=== PATIENT | male | born 1955 | race Caucasian/White ===

== ENCOUNTER 2019-11-13 13:20 | Inpatient (IN) | payer OTHER ==
[~2019-11-13] VITALS: Ht 177.8 cm; Wt 77.1 kg
--- NOTE | ~2019-11-13 | HC ---
[facility] [place] [address] CONSULTATION Name: KALEB REDDY Room #: 448-P [facility] IN .R.#: [id number] Admission: 11/13/19 Attend Phys: Bharat Maier MD Discharge: Date of : 59 Report #: [id number] THIS REPORT FOR: cc: [facility] - No family physician/PCP [facility] - No family physician/PCP Thiago Snyder MD ~ CC: [facility] physician/PCP Bharat Maier DATE OF SERVICE: 11/17/2019 HISTORY OF PRESENT ILLNESS: The patient is a 64-year-old white male with history of diabetes mellitus, ongoing problems with right foot, does not have a regular physician or insurance and has not been seen for approximately 3 years. He was diagnosed with osteomyelitis of that right foot and underwent a below-knee amputation on 11/14/2019. We are seeing him in rehabilitation medicine consultation. PAST MEDICAL HISTORY: Includes the diabetes mellitus. ALLERGIES: No known drug allergies. MEDICATIONS: Please see the full medication listing. HABITS: No history of tobacco or alcohol abuse. SOCIAL HISTORY: Lives in a house alone without adaptive device. There are 20 steps in and that are outside steps, have an ascending hand roll on the left. He notes this is a rental home and he has a landlord. He does not have any family in the area. REVIEW OF SYSTEMS: Denies any current complaints of chest pain, shortness of breath or abdominal discomfort. PHYSICAL EXAMINATION: GENERAL: The patient is a 64-year-old white male in no obvious distress. VITAL SIGNS: Last recorded temperature 98.7, pulse 95, respirations 18, blood pressure 121/83. The patient is alert, pleasant. HEENT: Appeared to be benign. NEUROLOGIC: Cranial nerves grossly intact. Facies are symmetric. EXTREMITIES: Functional range of motion of both upper extremities without focal weakness. He notes he has had some prior trauma to the left shoulder and complains of some premorbid mild weakness. He does have some mild weakness with external rotation with the arm adducted. Lower extremities, no focal calf swelling of the left lower extremity, functional range of motion with good strength. Right lower extremity reveals the right below knee amputation. [address] [address] CONSULTATION Name: KALEB REDDY Room #: 448-P [facility] IN .R.#: [id number] Admission: 11/13/19 Attend Phys: Bharat Maier MD Discharge: Date of : 59 Report #: [id number] He can fully extend. Functionally, he has been min assist sit to stand. ASSESSMENT: A 64-year-old white male with the following problems: 1. Osteomyelitis, right foot, status post right below-knee amputation, 11/14/2019. 2. Diabetes mellitus, was utilizing oral treatment. Hemoglobin A1c was 9.9 on admission noted to be uncontrolled. 3. Vitamin D deficiency. PLAN: Therapies are working with him. We will need to see how he does. We will be glad to follow along with you regarding rehab therapy issues. By: 1207 [facility] Thiago Snyder MD /WALI
--- NOTE | ~2019-11-13 | HC ---
[facility] [place] [address] CONSULTATION Name: KALEB REDDY Room #: 448-P [facility] IN M.R.#: [id number] Admission: 11/13/19 Attend Phys: Bharat Maier MD Discharge: Date of : 59 Report #: [id number] THIS REPORT FOR: cc: [facility] - No family physician/PCP [facility] - No family physician/PCP Frances Hawkins MD ~ CC: [facility] physician/PCP Bharat Maier DATE OF SERVICE: 11/14/2019 ORTHOPEDIC CONSULTATION NOTE REASON FOR CONSULTATION AND CHIEF COMPLAINT: Right necrotic foot. HISTORY OF PRESENT ILLNESS: The patient reports in August noting that his right foot turned black. He washed it off, got all the black stuff off per him, but it did not heal. He thinks he may have had a blood clot at some point. He reports it is painful and he notes a foul smell and drainage. He has been wrapping his foot. The patient has not seen a physician in 3 years. REVIEW OF SYSTEMS: NEUROLOGIC: Reports numbness and tingling to all of his extremities. MUSCULOSKELETAL: Denies any other wounds to his extremities. PAST MEDICAL HISTORY: Significant for coronary artery disease and diabetes. PAST SURGICAL HISTORY: CABG x 6 and cataract surgery. MEDICATIONS: No home medications. SOCIAL HISTORY: He does not work, has difficulty ambulating secondary to his foot. Drinks alcohol occasionally. FAMILY HISTORY: Noncontributory. LABORATORY STUDIES: Done on 11/13/2019 show white blood cell count 7.1, hemoglobin 9.4, hematocrit 28.4, platelet count 557. ESR is 123. Chemistry on 11/12 showed a blood glucose of 284. PHYSICAL EXAMINATION: GENERAL: The patient is alert and oriented. He interacts appropriately. He is well-developed, well-nourished male in no acute distress. He has normal mood and affect. He is in his hospital bed. VITAL SIGNS: Most recent vital signs show a temperature of 36.6, heart rate 79, respiratory rate 18, blood pressure 92/57, pulse oximetry is 97% on room air. [address] [address] CONSULTATION Name: KALEB REDDY Room #: 448-P [facility] IN M.R.#: [id number] Admission: 11/13/19 Attend Phys: Bharat Maier MD Discharge: Date of : 59 Report #: [id number] EXTREMITIES: Examination of his right lower extremity, there is a foul odor from the foot. It was unwrapped nearly completely. There was absence of the toes. The patient reports these "dissolved." There was significant edema to the entire foot including the heel. I was unable to palpate a posterior tibial or a dorsalis pedis pulse. Gross motion was intact at the ankle. Gross stability of the ankle was intact. There was diffuse erythema at the entire foot. Sensation was decreased. He had a 2+ popliteal pulse. His left foot was intact. The skin was intact. IMAGING STUDIES: Three views of the right foot including an AP, lateral and oblique were reviewed and interpreted by myself. The report was reviewed as well, which shows absence of the distal phalanges of the foot, soft tissue air. IMPRESSION AND PLAN: Right foot necrosis with autoamputation, wet gangrene. I will order a Doppler evaluation of the arteries and discuss with one of my [facility] partners. We will keep him n.p.o. at this point. We discussed most likely below-knee amputation would be required. Questions were encouraged and answered to the best of my ability. By: [id number] Frances Hawkins MD /nt
--- NOTE | ~2019-11-13 | HC ---
[facility] [place] [address] CONSULTATION Name: KALEB REDDY Room #: 448-P [facility] IN M.R.#: [id number] Admission: 11/13/19 Attend Phys: Bharat Maier MD Discharge: Date of : 59 Report #: [id number] THIS REPORT FOR: cc: [facility] - Suzette family physician/PCP [facility] - Suzette family physician/PCP Wilfrid Celaya MD ~ CC: [facility] physician/PCP Bharat Maier DATE OF SERVICE: 11/14/2019 WOUND CARE CONSULTATION PERSONAL PHYSICIAN: Bharat Maier MD CHIEF COMPLAINT: Right foot wound. HISTORY OF PRESENT ILLNESS: This is a 64-year-old white male with a history of poorly controlled diabetes, who states approximately 3-4 months ago, he developed swelling of his right foot, which he states he thought was secondary to blood flow. The patient at that time states he a heating pad on the foot and then several hours later noticed that his foot was somewhat black. The patient states that he started having increased drainage and has been using paper towels and a plastic bag for this. The patient has not sought medical care. The patient states, however, in the past couple of days the patient started having slight amount of pain in the foot as well as a significant odor. It was the odor that brought him to the Emergency Department to be evaluated. In the Emergency Department, it was felt the patient had obvious open infected wound with exposed bones. The patient was admitted for IV antibiotics, surgical evaluation and most likely a ytzbz-ttx-bdds amputation. PAST MEDICAL HISTORY: Significant only for diabetes. CURRENT MEDICINES: None. Despite the patient is diabetic he is not taking any medicines for it. DRUG ALLERGIES: None. SOCIAL HISTORY: The patient does not smoke. The patient drinks alcohol socially. Lives independently. FAMILY HISTORY: Not pertinent to current medical condition. REVIEW OF SYSTEMS: CONSTITUTIONAL: The patient denies fevers or chills. NEUROLOGIC: The patient denies numbness, tingling, weakness in arms or legs. [facility] [address] [place] [address] CONSULTATION Name: KALEB REDDY Room #: 448-P [facility] IN ..#: [id number] Admission: 11/13/19 Attend Phys: Bharat Maier MD Discharge: Date of : 59 Report #: [id number] EYES: No complaints. ENT: No complaints. CARDIAC: The patient complains of swelling in his right foot and lower extremity, but denies chest pain or palpitation. RESPIRATORY: The patient denies shortness of breath, cough or wheezes. GASTROINTESTINAL: The patient denies nausea, vomiting, abdominal pain. GENITOURINARY: The patient denies urgency or frequency. MUSCULOSKELETAL: No complaints. SKIN: There is an open wound to the right foot with exposed bone and significant foul odor. PHYSICAL EXAMINATION: VITAL SIGNS: Temperature 37.1, pulse 83, respiration rate 19, and BP 93/50. GENERAL: This is an alert and oriented x 3 white male who is in no obvious distress. HEENT: Normocephalic, atraumatic. Mucous membranes are somewhat dry. Pupils are round. Sclerae white. NECK: Supple, nontender. LUNGS: Clear. HEART: Regular. ABDOMEN: Soft, nontender. EXTREMITIES: The patient moves all extremities without difficulty. Evaluation of left lower extremity reveals a 2+ dorsalis pedis pulse and no signs of open wounds. Evaluation of right lower extremity reveals trace to 1+ edema with 1+ dorsalis pedis pulse. The foot itself is significantly edematous with exposed bone and necrotic toes, several of the toes appeared auto amputated. There is a significant odor with copious amounts of reddish brown drainage. There is significant amount of necrotic slough. NEUROLOGIC: Cranial nerves 2-12 grossly intact. Motor and sensory grossly intact. Lower extremity arterial ultrasound shows no signs of significant arterial stenosis. LABORATORY DATA: White count 6.7, hemoglobin 7.7. Sed rate 123. C-reactive protein was 76.7. Albumin is 2.1. IMPRESSION: 1. Chronic right foot wound with exposed bone and obvious gangrene. 2. Cellulitis, right foot secondary to #1. 3. Diabetes mellitus. 4. Generalized debility. 5. The patient also has anemia, workup undergoing. 6. Protein-calorie malnutrition -- severe with albumin of 2.1. PLAN: Orthopedics has seen the patient and agrees that most likely the patient [address] [address] CONSULTATION Name: KALEB REDDY Room #: 448-P [facility] IN M.R.#: [id number] Admission: 11/13/19 Attend Phys: Bharat Maier MD Discharge: Date of : 59 Report #: [id number] will need a ggyfv-wst-gxyi amputation and I concur with this. I have talked to the patient about this, he is agreeable to having the amputation. We will make sure we maximize the patient's oral protein supplementation for healing. We will continue all his other meds including IV antibiotics. We will continue to follow the patient after the surgical procedure. By: [id number] Wilfrid Celaya MD /nt
--- NOTE | ~2019-11-13 | O ---
[facility] [place] [address] OPERATIVE REPORT Name: KALEB REDDY Room #: 448-P [facility] IN M.R.#: [id number] Admission: 11/13/19 Attend Phys: Bharat Maier MD Discharge: Date of : 59 Report #: [id number] THIS REPORT FOR: cc: [facility] - Suzette family physician/PCP [facility] - Suzette family physician/PCP Lei Duarte MD ~ CC: [facility] physician/PCP Bharat Maier DATE OF SERVICE: 11/14/2019 PREOPERATIVE DIAGNOSIS: Right foot osteomyelitis. POSTOPERATIVE DIAGNOSIS: Right foot osteomyelitis. PROCEDURE: Right lltxy-mjm-obtn amputation. SURGEON: Dr. Lei Duarte. SOLE SKIVER: Jennifer Servin. ANESTHESIA: General. ESTIMATED BLOOD LOSS: Minimal. DRAINS: No drains. TOURNIQUET TIME: One hour. DESCRIPTION OF PROCEDURE: The patient was brought to the operating room where he was placed under general anesthesia. Once under adequate general anesthesia, his right lower extremity was prepped and draped in sterile manner. The extremity was elevated and a tourniquet placed to 300 mmHg. A fishmouth type incision about the mid to distal third of the tibia was then made. This was then sharply incised and dissected directly down to the bone. Any vessels including the peroneal and posterior tibial vessels were then clamped and ligated with 0 silk suture. The posterior tibial nerve was incised proximally in the muscle. The tibia was then transected and beveled anteriorly with a large oscillating saw. The fibula was cut proximal to this in an oblique fashion. The wound was then irrigated copiously and closed with 0 Vicryl in the fascial layer to repair the gastroc fascia to the anterior tibial periosteum and the deep fascia was closed with 0 Vicryl as well over a Hemovac drain, 2-0 Vicryl was used in subcutaneous tissues and teresa were used for the skin. The wound was dressed with Xeroform, 4 x 4s, and sterile soft compressive dressing was then placed. Tourniquet was let down at 1 hour. There were no [facility] [address] [place] [address] OPERATIVE REPORT Name: KALEB REDDY Room #: 448-P [facility] IN ..#: [id number] Admission: 11/13/19 Attend Phys: Bharat Maier MD Discharge: Date of : 59 Report #: [id number] complications from the procedure. The patient tolerated the procedure well and went to the recovery room without incident. By: [id number] Lei Duarte MD /nt
[2019-11-13 13:20] VITALS: BP 116/77
[2019-11-13 14:37] LABS: ABSOLUTE NEUTROPHILS 5.1 thou/uL (1.4-8.2); BASOPHILS 0.6 % (0.0-2.0); EOSINOPHILS 0.9 % (0.0-3.0); HEMATOCRIT 28.4 % (42.0-52.0); HEMOGLOBIN 9.4 gm/dL (14.0-18.0); LYMPHOCYTES 16.1 % (24.0-44.0); MCH 27.3 pg (26.0-34.0); MCHC 33.2 g/dL (28.0-37.0); MCV 82.1 fL (80.0-100.0); MONOCYTES 10.2 % (1.0-8.0); PLATELET COUNT 557 thou/uL (150-400); POLYS 72.2 % (36.0-66.0); RBC 3.47 mil/uL (4.50-6.00); RDW 15.8 % (10.5-14.5); WBC 7.1 thou/uL (4.0-11.0)
[2019-11-13 14:46] LABS: CALCIUM 8.3 mg/dL (8.5-10.1); CREATININE 0.9 mg/dL (0.7-1.3); POTASSIUM 3.5 mmol/L (3.5-5.1)
[2019-11-13 14:52] LABS: ALBUMIN 2.1 g/dL (3.4-5.0); TOTAL BILIRUBIN 0.3 mg/dL (<0.1-1.0); TOTAL PROTEIN 7.4 g/dL (6.4-8.2)
[2019-11-13 15:35] VITALS: BP 111/70
[2019-11-13 15:39] VITALS: BP 111/70
[2019-11-13 16:48] LABS: TSH 0.34 uIU/mL (0.358-3.740)
[2019-11-13 17:06] LABS: FOLIC ACID 22.5 ng/mL (8.6-58.9)
[2019-11-13 17:51] LABS: % SATURATION 6 % (20-39); IRON 13 ug/dL (65-175); TIBC 211 ug/dL (250-450)
[2019-11-13 19:20] VITALS: BP 107/71
--- NOTE | 2019-11-13 19:20 | NUR ---
VSS-AFEBRILE. LUNGS CLEAR-ROOM AIR. RIGHT FOOT NECROTIC, WITH PUSSY DRAINAGE AND FOUL ODOR. STARTED ANTIBIOTICS PER ORDERS, MEDICATED FOR PAIN WITH IV MORPHINE WITH PARTIAL RELIEF NOTED.
[2019-11-14 00:07] LABS: GLYCOHEMOGLOBIN (HGB A1C) 9.9 % (4.8-5.6)
--- NOTE | 2019-11-14 01:44 | NUR ---
PT WAS ADMITTED TO THE UNIT IN A STABLE CONDITION.ADMISSION COMPLETED BY ADMISSION NURSE.DRSG ON HIS R FOOT C/D/I.PT C/O PAIN ON HIS FOOT,MANAGED WITH MED.PT'S BUTTOCK RED BUT NOT OPEN,PT ENCOURAGED TO REPOSITION SELF WHILE IN BED.BG MONITORED,COVERAGE GIVEN PER SS.IVF AND IV ABX ORDERED.PT RESTING ON HIS BED AT THIS TIME.FALL PRECAUTIONS IN PLACE,CALL LIGHT WITHIN REACH.
[2019-11-14 05:00] VITALS: BP 92/57
[2019-11-14 07:11] VITALS: BP 93/50
[2019-11-14 07:56] LABS: ABSOLUTE NEUTROPHILS 4.3 thou/uL (1.4-8.2); BASOPHILS 0.8 % (0.0-2.0); EOSINOPHILS 2.3 % (0.0-3.0); HEMATOCRIT 24.4 % (42.0-52.0); HEMOGLOBIN 7.7 gm/dL (14.0-18.0); LYMPHOCYTES 21.4 % (24.0-44.0); MCH 26.4 pg (26.0-34.0); MCHC 31.7 g/dL (28.0-37.0); MCV 83.3 fL (80.0-100.0); MONOCYTES 10.9 % (1.0-8.0); POLYS 64.6 % (36.0-66.0); RBC 2.93 mil/uL (4.50-6.00); RDW 15.8 % (10.5-14.5); WBC 6.7 thou/uL (4.0-11.0)
[2019-11-14 08:00] LABS: PLATELET COUNT 454 thou/uL (150-400)
[2019-11-14 08:11] LABS: ANION GAP 9 mmol/L (7-16); BUN 10 mg/dL (7-18); CALCIUM 7.3 mg/dL (8.5-10.1); CHLORIDE 104 mmol/L (98-107); CO2 23 mmol/L (21-32); CREATININE 0.7 mg/dL (0.7-1.3); GLUCOSE 123 mg/dL (74-106); MAGNESIUM 1.4 mg/dL (1.8-2.4); POTASSIUM 3.5 mmol/L (3.5-5.1); SODIUM 136 mmol/L (136-145)
[2019-11-14 08:41] LABS: CHOLESTEROL 112 mg/dL (<200); HDL CHOLESTEROL 21 mg/dL (>40); LDL CHOLESTEROL 73 mg/dL (<100); TC:HDL 5.3 Ratio (Not establshd); TRIGLYCERIDE 92 mg/dL (<150); VLDL 18 mg/dL (<40)
--- NOTE | 2019-11-14 12:29 | NUR ---
Nutrition: Assessed due to R foot wound. Hx: DM - not currently on meds. Consult in to endo, wound care, ortho. Pt NPO for possible procedure today? Per EMR, pt w/ R foot wound for a few months, progressively got worse. Noted to have missing toes, eschar, cellulitis. Spent significant time on both wound/protein education and carb/diabetes education for better BG/A1c control. Spent 20-30 mins total in education process. Encouraged ideally 2 protein sources per meal. Pt's appetite is intact/at baseline, just not able to eat this date while awaiting possible wound intervention. A1c 9.9%. Also note labs for vitamin D is deficient at 16.2 ng/ml. REC supplement. Pt believed wt to be 170# per home scale, but CBW 153# here (if accurate) indicating possible 17# loss. Some wt loss could be attributed to uncontrolled DM. BMI remains healthy, pt not concerned, and extensive nutrition education complete. Low nutrition risk. See RD education note for further details.
--- NOTE | 2019-11-14 13:38 | NUR ---
ASSESSMENT: CM REVIEWED CHART AND SPOKE WITH PATIENT AT THE BEDSIDE. PT WAS ADMITTED WITH A RIGHT FOOT WOUND WITH ODOR. PT REPORTS THAT HE CURRENTLY DOES NOT HAVE ANY INSURANCE. PT REPORTS HE HAS NOT SEEN A PHYSICIAN IN ABOUT THREE YEARS DUE TO NOT HAVING INSURANCE. HE REPORTS HE ALSO HAS NOT BEEN ABLE TO WORK DUE TO THIS INJURY. PT REPORTS THAT HE LIVES IN A HOUSE ALONE. PT REPORTS THAT HE IS NORMALLY INDEPENDENT WITH ADLS AND AMBULATION. PT STATES HAVING ABOUT 20 STEPS TO ENTER HIS HOME WITH HANDRAILS. PT REPORS HE WAS INDEPENDENT WITH ADLS AND DENIES HAVING ANY DME. PT HAS A HX OF DIABETES AND REPORTS HE WAS TAKING PO MEDICATION FOR IT A WHILE AGO BUT STATES HE HAS NOT BEEN COMPLIANT DUE TO FINANCIAL HARDSHIPS. ORTHO HAS BEEN CONSULTED TO SEE PATIENT AND POSSIBLE NEED FOR BKA. CM DISCUSSED REFERRAL WOULD BE SENT TO [facility] TO SEE IF PATIENT QUALIFIES FOR MEDICAID. CM ALSO REACHED OUT TO 5N TO KEEP PT ON THEIR RADAR IF PT WERE TO POSSIBLY GET BKA AND NEED REHAB. WILL AWAIT FURTHER INPUT FROM ORTHO. NO PLANS FOR WEEKEND DISCHARGE.
[2019-11-14 18:45] VITALS: BP 118/74
[2019-11-14 19:15] VITALS: BP 122/78
--- NOTE | 2019-11-14 19:38 | NUR ---
VSS-AFEBRILE. LUNGS CLEAR-PLACED ON 2LNC TO KEEP SAO2 .92% POST OPERATIVELY. RIGHT LOWER EXTREMITY WRAPPED IN HADLEY WRAP WITH HEMOVAC IN PLACE. GODD SENSATION REPORTED. EXTREMITY ELEVATED ON PILLOW. TOLERATING CLEAR LIQUIDS WITH NO REPORTED N/V. CALLS APPROPRIATELY FOR ANY NEEDED ASSISTANCE.
--- NOTE | 2019-11-15 01:43 | NUR ---
ASSESSMENT COMPLETED. PT IS ALERT AND ORIENTED X 4. R STUMP WITH POST OP DRG INTACT. HEMOVAC IN PLACE. PT GIVEN NORCO HS FOR SOME PAIN-DESCRIBED IT PHANTOM?ROOM AIR, VOIDING PER URINAL. DNIES NAUSEA OR VOMITING. AFEBRILE.CALL APPROPRIATELY. WILL CONTINUE WITH POC TILL EOS.
[2019-11-15 04:10] VITALS: BP 119/81
[2019-11-15 05:08] LABS: THYROID PEROXIDASE AB 6 IU/mL (0-34)
[2019-11-15 05:42] LABS: HEMATOCRIT 24.6 % (42.0-52.0); HEMOGLOBIN 7.9 gm/dL (14.0-18.0)
[2019-11-15 05:45] LABS: POTASSIUM 4.2 mmol/L (3.5-5.1)
[2019-11-15 08:22] VITALS: BP 127/76
--- NOTE | 2019-11-15 14:27 | NUR ---
REFERRAL FROM NURSE ON UNIT. THIS PLATE FORMER VISITED WITH MARINE WHO RECENTLY UNDERWENT AMPUTATION OF LEG BELOW KNEE. WE DISCUSSED SPIRITUAL MATTRERS AND RELATIOSHIS WITH OTHER PEOPLE.
--- NOTE | 2019-11-15 17:33 | NUR ---
ASSUMED PATIENT CARE AT 0700. AXO TIMES 4.HEMOVAC IN PLACE. VOIDING USING URINAL.PATIENT REPORTED PAIN OF 6-7, HYDROCODONE GIVEN. LATER ON ASSESMENT PATIENT SAID HIS PAIN WAS NOT RELIEVING AND HE NEED SOME OTHER MEDICINE OTHER THAN HYDROCODONE, SO MORPHINE WAS GIVEN. AROUND 3 PM, PATIENT ASKED FOR MEDS TO RELIEVE MUSCLE SPASM, PROVIDER NOTIFIED. CHAPLAINVISITED AND SPIRITUAL CARE DONE AROUND 1400. PT CONSULTED, PATIENT PIVOTS FROM BED TO CHAIR USING A GAIT BELT AND WITH THE SUPPORT OF HIS STRONG LIMB.IRRIGATION LABORER FROM THE ACCOUNT ADMINISTRATOR COMP CAME AND STATED THE STUMP DIRECTOR OF FINANCE WILL BE PUT WITH LATER DATES AND THEY WILL FOLLOW UP. CALL LIGHT AND PERSONAL ITEMS WITHIN REACH. WILL CALL FOR HELP.
[2019-11-15 19:50] VITALS: BP 106/65
--- NOTE | 2019-11-16 05:04 | NUR ---
PT CONTINUES ON IV ABTS.R STUMP WITH POST OP DRSG CLEAN AND INTACT-HEMOVAC STILL IN PLACE WITH NO OUTPUT-HEMOVAC TO BE D/CD TODAY. PT HAS BEEN AFEBRILE.CALLS WELL WITH NEEDS.
[2019-11-16 08:33] VITALS: BP 120/84
--- NOTE | 2019-11-16 16:18 | NUR ---
ASSUMED PATIEN CARE AT 0700. AXO X4, ON ROOM AIR. ACHS. RT STUMP WITH POST OP DRESSING CLEAN AND INTACT. HEMOVAC REMOVED. PAIN CONTROLLED BY HYDROCODONE. CALL LIGHT WITHIN REACH, WILL CALL FOR HELP. WILL CONTINUE TO MONITOR.
[2019-11-16 18:01] VITALS: BP 120/79
[2019-11-16 19:23] VITALS: BP 114/77
[2019-11-17 03:29] VITALS: BP 125/89
--- NOTE | 2019-11-17 07:57 | NUR ---
PT TRANSFERS TO BEDSIDE COMMODE WITH STANDBY ASSIST AND IS TOLERATING WELL. LORTAB PROVIDING PAIN RELIEF. RESTING COMFORTABLY. NO NEEDS VOICED. CALL LIGHT WITHIN REACH. FREQUENT OBSERVATION.
[2019-11-17 08:42] VITALS: BP 121/83
--- NOTE | 2019-11-17 14:19 | HC ---
[facility] [place] [address] CONSULTATION Name: KALEB REDDY Room #: 448-P [facility] IN .R.#: [id number] Admission: 11/13/19 Attend Phys: Bharat Maier MD Discharge: Date of : 59 Report #: [id number] THIS REPORT FOR: cc: IRMA Bradford family physician/PCP IRMA Bradford family physician/PCP Perri Uribe MD ~ CC: IRMA physician/PCP Bharat Maier DATE OF SERVICE: 11/14/2019 ENDOCRINE CONSULTATION NOTE CONSULTING PHYSICIAN: Dr. Chen. REASON FOR CONSULTATION: Uncontrolled type 2 diabetes mellitus. HISTORY OF PRESENT ILLNESS: This is a 64-year-old male patient whose medical background is significant for type 2 diabetes mellitus as well as coronary artery disease, who presented to the ER with progressive issues pertaining to right lower extremity cellulitis, nonhealing wound and eventually loss of toes. He reports foul smell as well as worsening drainage and his attempts to self-care for the wound did not seem to help it improve. These issues started as of mid 08/2019. The patient believes that he was first diagnosed with type 2 diabetes mellitus over 10 years ago, but notes that he has not been on any active therapy, blood glucose monitoring, or medical followup for over 3 years due to loss of health insurance and limited financial access. He is not aware of issues pertaining to diabetic retinopathy, neuropathy or nephropathy. The patient is known to have coronary artery disease and describes a 6-vessel bypass surgery done in 2009, but has not had much followup since then. REVIEW OF SYSTEMS: CONSTITUTIONAL: Fatigue, tiredness, but not fever or chills or significant body weight changes. HEENT: Negative for sore throat, sinus pain or ear drainage. PULMONARY: Negative for shortness of breath, cough or hemoptysis. CARDIAC: Negative for chest pain, palpitations, syncope or presyncope. GASTROINTESTINAL: Negative for abdominal pain, nausea, vomiting or changes in bowel movement frequency. NEUROLOGY: Negative for loss of consciousness, seizure activity or frequent severe headaches. DERMATOLOGY: Noted for worsening right foot wound, drainage, loss of toes. [facility] [address] [place] [address] CONSULTATION Name: KALEB REDDY Room #: 448-P [facility] IN .R.#: [id number] Admission: 11/13/19 Attend Phys: Bhraat Maier MD Discharge: Date of : 59 Report #: [id number] Otherwise, review of systems noncontributory other than those mentioned in HPI. PAST MEDICAL HISTORY: 1. Type 2 diabetes mellitus. 2. Coronary artery disease. ALLERGIES: No known drug allergies. HOME MEDICINES: None. FAMILY HISTORY: Noncontributory. SOCIAL HISTORY: The patient lives alone, has never smoked and drinks alcohol only socially. PHYSICAL EXAMINATION: GENERAL: male patient who is not in apparent distress. VITAL SIGNS: Blood pressure is 93/50 mmHg, heart rate is 83 beats per minute, respiration 19 per minute, temperature is 37.1 degrees Celsius. CONSTITUTIONAL: The patient is lying in bed, appears relatively comfortable, not in apparent distress. HEENT: Anicteric sclerae. Intact extraocular motions. NECK: Supple, without JVD, carotid bruits or lymphadenopathy. I do not appreciate thyromegaly. CHEST: Noted for good air entry bilaterally with scattered rales. No wheezes or crackles. HEART: Regular rate and rhythm without murmurs or gallops. ABDOMEN: Soft, lax. No guarding. Active bowel sounds. EXTREMITIES: Lower extremity exam, right foot is wrapped in dressing. NEUROLOGIC: Awake, alert and oriented to time, place and person. The remainder of his examination is nonfocal. PSYCHIATRIC: Interactive. Normal mood and affect. LABORATORY RESULTS: White blood count 6.7, hemoglobin 7.7, hematocrit 24.4, platelets 454. Sodium 136, potassium 3.5, chloride 104, carbon dioxide 23, anion gap 9, BUN 10, creatinine 0.7, EGFR 114, glucose 123, calcium 7.3, magnesium 1.4, triglycerides 92, total cholesterol 112, LDL 73, HDL 21. Glucose on arrival was 284. Iron 13. Hemoglobin A1c 9.9%. Ferritin 129. Vitamin B12 of 1148. Vitamin D is 16.2. TSH is 0.34. ESR 123. Glucose 192, calcium 8.3, total bilirubin 0.3, AST 12, ALT 10, alkaline phosphatase 134. Lactic acid 0.8. ASSESSMENT AND PLAN: 1. Type 2 diabetes mellitus. As noted above, the patient has had longstanding issues with type 2 diabetes mellitus. Unfortunately, he has been completely off active therapy and has not been under any sort of monitoring whether at home or otherwise due to limited resources and lack of health coverage. The patient was [address] [place] [address] CONSULTATION Name: KALEB REDDY Room #: 448-P [facility] IN M.R.#: [id number] Admission: 11/13/19 Attend Phys: Bharat Maier MD Discharge: Date of : 59 Report #: [id number] counseled at length about the pathogenesis of type 2 diabetes mellitus, as well as about the importance of achieving and maintaining adequate glycemic control so as to prevent diabetic complications, both short term and supervisor intermediates. I highlighted the importance of controlling hyperglycemia pertaining to his active issues with osteomyelitis. The patient's hemoglobin A1c of 9.9% speaks to sustained uncontrolled hyperglycemia over the past several months. In the immediate setting, the patient presented with a hyperglycemic value of 284 and he was medicated with Humalog supplemental scale to which he responded rather well and maintained normoglycemia for over 12 hours afterwards. 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 Blood glucose monitoring will continue a.c. and at bedtime, so as to adjust his therapeutic regimen as needed. 2. Osteomyelitis. The patient presented with significant osteomyelitis changes affecting his right foot and the initial x-ray was noted for air within the subcutaneous soft tissue lateral aspect of the foot with a possible abscess formation. 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 He is currently on vancomycin and Zosyn and is undergoing evaluation by Orthopedics for a potential intervention likely to include a below-knee amputation. 3. Hypocalcemia. The patient is hypocalcemic likely in relation to vitamin D deficiency. He will need vitamin D supplementation. 4. Vitamin D deficiency. This is confirmed at 16.2. I will start the patient on high-dose ergocalciferol therapy as 50,000 International Units once a week. Long-term followup will be needed. 5. Hyperthyroidism. The patient has a slightly suppressed TSH. I will check a free T4 and serology studies to better assess this outlook. I certainly appreciate this consultation by Dr. Chen. <ELECTRONICALLY SIGNED> By: Perri Uribe MD 11/17/19 1419 [id number] Perri Uribe MD /nt
--- NOTE | 2019-11-17 14:51 | HC ---
[facility] [place] [address] CONSULTATION Name: KALEB REDDY Room #: 448-P ADM IN M.R.#: [id number] Admission: 11/13/19 Attend Phys: Bharat Maier MD Discharge: Date of : 59 Report #: [id number] THIS REPORT FOR: cc: IRMA - No family physician/PCP IRMA - No family physician/PCP Vikash Kan MD ~ CC: [facility] physician/PCP Bharat Maier DATE OF SERVICE: 11/14/2019 INFECTIOUS DISEASE CONSULTATION REASON FOR CONSULTATION: I was asked to evaluate concerning right foot gangrene. HISTORY OF PRESENT ILLNESS: A 64-year-old with history of diabetes, peripheral neuropathy and vasculopathy. Three or four months ago developed swelling to his right foot with development of nonhealing wound with increased drainage. We tried to care for this at home without relief. He presents to the Emergency Room for further evaluation. Denies any fever, chills or sweats. No increased pain. He was evaluated by Orthopedic Surgery who recommended below-knee amputation, which was performed today. Postoperatively, remained stable. REVIEW OF SYSTEMS: No cardiopulmonary, GI or complaints. PAST MEDICAL HISTORY: Diabetes. ALLERGIES: None. MEDICATIONS: As noted on his MAR, which were reviewed. Currently on vancomycin and Zosyn. FAMILY HISTORY: Noncontributory. SOCIAL HISTORY: Nonsmoker, no significant alcohol intake. PHYSICAL EXAMINATION: VITAL SIGNS: He is afebrile, hemodynamically stable. GENERAL: Alert and cooperative. No distress. HEENT: Eyes, without scleral icterus. Mouth without mucositis. CHEST: Clear. HEART: Regular. ABDOMEN: Soft and nontender. EXTREMITIES: Right icdtw-brx-bzcm amputation stump was dressed and dry. Hemovac in place. No adenopathy in the groin. [facility] [address] [place] [address] CONSULTATION Name: KALEB REDDY Room #: 448-P [facility] IN .R.#: [id number] Admission: 11/13/19 Attend Phys: Bharat Maier MD Discharge: Date of : 59 Report #: [id number] LABORATORY STUDIES: Reviewed. MICROBIOLOGY: Reviewed. RADIOLOGICAL DATA: X-ray of the foot reviewed. Arterial Doppler reviewed. IMPRESSION: 1. Right foot gangrene with diabetes and peripheral neuropathy. 2. Anemia. 3. Malnutrition. RECOMMENDATION: The patient has Alcaligenes, Klebsiella and Enterococcus growth from his foot wound. We will continue Zosyn for 3 days postop. Reevaluate incision at the time of dressing change. <ELECTRONICALLY SIGNED> By: Vikash Kan MD 11/17/19 1451 [id number] Vikash Kan MD /nt
[2019-11-17 16:15] VITALS: BP 90/66
--- NOTE | 2019-11-17 18:02 | NUR ---
Assumed care of pt at 0700. Pt a&ox4. Pt able to transfer to chair from bed. Pt states surgeon looked underneath the dressing and stated he will come back and change it tomorrow. Lantus added to pt insulin regimen due to high blood sugar. Pt calls appropriately. Fall precautions in place.
[2019-11-17 18:30] VITALS: BP 110/73
[2019-11-18 02:40] VITALS: BP 118/87
--- NOTE | 2019-11-18 04:24 | NUR ---
ASSUMED PT CARE AT 1900. 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 STOOL SAMPLE SENT TO LAB. PT PIVOTS WELL TO BSC. STARTED ON METFORMIN TONIGHT. CALLS APPROPRIATELY FOR NEEDS. BKA DRESSING D/C/I. WILL CONTINUE TO MONITOR.
[2019-11-18 07:14] VITALS: BP 104/74
[2019-11-18] MEDS ORDERED: HYDROCODON-ACE1 EAC7 PO (09:52)
[2019-11-18] MEDS ORDERED: MIRALAX17 GM PO (09:52)
[2019-11-18] MEDS ORDERED: GLUCOPHAGE XR750 MG PO (09:52)
[2019-11-18] MEDS ORDERED: TRADJENTA5 MG PO (09:52)
[2019-11-18] MEDS ORDERED: LANTUS SUBQ (09:53)
[2019-11-18 15:49] VITALS: BP 108/68
--- NOTE | 2019-11-18 16:19 | NUR ---
PT IS TO DC TO [facility] ACUTE INPATIENT REHAB THIS DAY. PT IS AWARE AND AGREEABLE. NO OTHER CM INTERVENTION INDICTAED. CASE CLOSED.
--- NOTE | 2019-11-18 16:36 | NUR ---
DC ORDERS RECEIVED. IV REMOVED FROM DESI. PT ESCORTED TO [facility] BY W/C. BONNIE STATED THEY WOULD SEE PT ON 5N. REPORT CALLED TO KERRI DEL ANGEL.
[2019-11-19 07:09] LABS: THYROID STIMULATING IG < 0.10 IU/L (0.00-0.55)
== END 2019-11-18 16:41 | DRG 616 ==
LOC: ER 13:20 → EROBS 15:18 → 4S 16:22
PROVIDERS: Internal Medicine; Nurse Practitioner; Orthopaedic Surgery Foot and Ankle Surgery; Physician Assistant; ADMIT Hospitalist
PROC: 0Y6H0Z1 Detachment at Right Lower Leg, High, Open Approach (ICD-10-PCS; principal; 2019-11-14)
DX: E11.69 Type 2 diabetes mellitus with other specified complication (principal); E43 Unspecified severe protein-calorie malnutrition; E11.52 Type 2 diabetes mellitus with diabetic peripheral angiopathy with gangrene; M86.8X7 Other osteomyelitis, ankle and foot; L03.115 Cellulitis of right lower limb; I96 Gangrene, not elsewhere classified; Z20.828 Contact with and (suspected) exposure to other viral communicable diseases; D64.9 Anemia, unspecified; I25.10 Atherosclerotic heart disease of native coronary artery without angina pectoris; E05.90 Thyrotoxicosis, unspecified without thyrotoxic crisis or storm; E55.9 Vitamin D deficiency, unspecified; E11.42 Type 2 diabetes mellitus with diabetic polyneuropathy; Z89.511 Acquired absence of right leg below knee; Z95.1 Presence of aortocoronary bypass graft; Z68.24 Body mass index [BMI] 24.0-24.9, adult; Z79.899 Other long term (current) drug therapy
CPT/HCPCS: 10195; 50010; 50101; 50386; 51412; 51771; 56524; 56525; 57091; 57104; 57179; 62110; 62900; 70005

== ENCOUNTER 2019-11-18 15:33 | Inpatient (IN) | payer OTHER ==
[~2019-11-18] VITALS: Ht 177.8 cm; Wt 67.8 kg
--- NOTE | ~2019-11-18 | H ---
[facility] [place] [address] HISTORY AND PHYSICAL Name: KALEB REDDY Room #: 515-P ADM IN M.R.#: [id number] Admission: 11/18/19 Attend Phys: Thiago Snyder MD Discharge: Date of : 59 Report #: [id number] THIS REPORT FOR: cc: IRMA - No family physician/PCP IRMA - No family physician/PCP Thiago Snyder MD ~ CC: Thiago SOLIS physician/PCP DATE OF SERVICE: 11/18/2019 HISTORY AND PHYSICAL AND POSTADMISSION PHYSICIAN EVALUATION HISTORY OF PRESENT ILLNESS: The patient is a 64-year-old white male with a history of diabetes mellitus, ongoing problems with his right foot, had not been seen by a physician apparently for approximately 3 years. He was diagnosed with osteomyelitis of the right foot and underwent a below-knee amputation on 11/14/2019. This was done by Dr. Duarte. He is noted to have significant functional mobility and ADL deficits and has been admitted for acute in-hospital inpatient rehabilitation. PAST MEDICAL HISTORY: Includes diabetes mellitus. ALLERGIES: No known drug allergies. MEDICATIONS: Please see the full medication listing. HABITS: No history of tobacco or alcohol abuse. SOCIAL HISTORY: Lives in a house without adaptive devices. There are 20 steps in, there are outside steps, has an ascending handrail on the left. He notes this is a rental home and he has a landlord. He does not have any family in the area. REVIEW OF SYSTEMS: No current complaints of chest pain, shortness of breath or abdominal discomfort. PHYSICAL EXAMINATION: GENERAL: A 64-year-old white male in no obvious distress. VITAL SIGNS: Last recorded temperature 98.3, pulse 86, respirations 20, blood pressure 112/72. He is alert and pleasant. HEENT: Appeared to be benign. NEUROLOGIC: Cranial nerves grossly intact. Facies are symmetric. CHEST: Sounded clear to auscultation. CARDIOVASCULAR: Regular rate and rhythm. ABDOMEN: Bowel sounds positive, nontender. [address] [address] HISTORY AND PHYSICAL Name: KALEB REDDY Room #: [facility] IN M.R.#: [id number] Admission: 11/18/19 Attend Phys: Thiago Snyder MD Discharge: Date of : 59 Report #: [id number] GENITOURINARY AND RECTAL: Deferred. EXTREMITIES: He has functional range of motion of both upper extremities without obvious focal weakness. Notes he has had some prior trauma to the left shoulder, complained of some premorbid mild weakness. He does have some mild weakness with external rotation with the arm adducted. Lower extremities, no focal calf swelling of the left lower extremity. Functional range of motion with good strength. Right lower extremity reveals right below knee amputation. He can fully extend. He does have a dressing in place. He has been min assist coming to stand. ASSESSMENT: A 64-year-old white male with the following problem list: 1. Osteomyelitis, right foot, status post below-knee amputation on 11/14/2019. 2. Diabetes mellitus, was on oral treatment. Hemoglobin A1c was 9.9. 3. Vitamin D deficiency. 4. Protein-calorie malnutrition, albumin 2.1. 5. There is a history of alcohol abuse per report. Counseling cessation has been offered. PLAN: The patient is admitted for acute in-hospital inpatient rehabilitation. From a postadmission physician evaluation perspective, there are no relevant changes since the preadmission screening. Please see the above review of prior and current medical and functional conditions and comorbidities. Please see the patient's previous and current functional status. As far as risk of complications, he does have the above noted comorbidities. Initial plan of care involves the interdisciplinary acute inpatient rehabilitation program. Measurable functional goals would be for him to become modified independent with transfers, mobility and ADLs and to be able to go up and down those steps, so he can hopefully return back to the home setting. Prognosis is reasonably good with estimated length of stay probably at least 10-14 days. Potential barriers would include his multiple medical comorbidities and decreased functional status. The patient meets diagnostic criteria for an acute in-hospital inpatient rehabilitation stay. He meets the medical necessity criteria. He does have the tolerance for therapies and has appropriate discharge goals back to the home setting. By: [id number] Thiago Snyder MD /nt
[~2019-11-18 15:33] MED LIST: GLUCOPHAGE XR750 MG PO; HYDROCODON-ACE1 EAC7 PO; LANTUS SUBQ; MIRALAX17 GM PO; TRADJENTA5 MG PO
--- NOTE | 2019-11-18 15:50 | NUR ---
chart review. pt supposed to dc to [facility] acute rehab today. cm visited with dewayne via phone call. intro to team meeting, and dcp. he able to make his needs know. flat tone in voice. he mainly answered with yes or no. dewayne reported " havent been able to work because cant get shoes one, yes unemployed. hardship, last time took medication 3 years ago. have machine to check bs but properly broken now. able to drive. was independent, no dme in past. no hh or rehab in past either"/dewayne. pt stated has not visited with [facility] yet. pt had referral set to [facility] prior to acute rehab. will cont following as needed for dc needs.
[2019-11-18 17:10] VITALS: BP 106/69
--- NOTE | 2019-11-18 17:28 | NUR ---
1700 ADMITED TO ROOM 515. PATIENT IS ALERT AND ORIENTED X4. PATIENT BASSETT'S, PATIENT HAS RIGHT BKA. PATIENT LUNGS ARE CLEAR AND DEMINISHED. ABD IS SOFT WITH BSX4. DRESSING CHANGED BY DR. REDMOND. UP IN RECLINER FOR DINNER. FALL AND SAFETY PROTOCOLS IN PLACE. DENIES PAIN AT THIS TIME. WILL GET PT/OT/ST EVALS IN AM. WILL CONTINUE TO MONITER.
[2019-11-18 19:25] VITALS: BP 112/72
--- NOTE | 2019-11-19 04:32 | NUR ---
Assumed pt care at 1900. A/OX4,VSS. Denies pain on assessment,LSCTA. Continent of B&B,voiding per urinal at night. Up with stand/pivot assist and GB to BSC prn. Dsg on Right BKA C/D/I,extremity elevated on a pillow as tolerated.Fall precautions in place,pt calling approp for help, resting w/o any distress,will continue to monitor pt.
[2019-11-19 06:49] LABS: HEMATOCRIT 30.7 % (42.0-52.0); HEMOGLOBIN 9.8 gm/dL (14.0-18.0); MCH 25.9 pg (26.0-34.0); MCHC 31.8 g/dL (28.0-37.0); MCV 81.5 fL (80.0-100.0); RBC 3.77 mil/uL (4.50-6.00); RDW 16.6 % (10.5-14.5); WBC 7.2 thou/uL (4.0-11.0)
[2019-11-19 06:55] LABS: CALCIUM 8.8 mg/dL (8.5-10.1); CREATININE 0.8 mg/dL (0.7-1.3)
[2019-11-19 08:00] VITALS: BP 102/78
--- NOTE | 2019-11-19 08:18 | NUR ---
ASSUME PT CARE AT 0700.PATIENT IS ALERT AND ORIENTED X4. ABLE TO VOICE HIS NEEDS. REASSESSMENT PER CHART. VSS ON RA. B/P 102/78, ENCOURAGE PT TO DRINK MORE FLUID. PATIENT HAS RIGHT BKA. C/D/I. PATIENT LUNGS ARE CLEAR AND DIMINISHED. ABD IS SOFT WITH BSX4. LAST BM WAS YESTERDAY. OFFERED SUPPORTIVE CARE. BS 159, 15 UNIT OF LANTUS GIVEN WITH MORNING MEDS. C/O OF R BKA WITH THROBBING PAIN RATES AT 6/10. PRN HYDROCODONE GIVEN. OT WORKED WITH PT THIS AM. PT IS SITTING IN WC EATING BREAKFAST. HAS GOOD APPETITE. ATE 100% BREAKFAST.FALL AND SAFETY PROTOCOLS IN PLACE. CALL LIGHT WITHIN REACH. WILL CONTINUE TO MONITER.
--- NOTE | 2019-11-19 13:34 | NUR ---
Nutrition: Pt admit to rehab following acute care stay for right foot wound which resulted in BKA. Wound/DM education done on acute. Pt had not been on meds for DM but now endo following and pt on SSI, glargine, metformin and linagliptin. A1C 9.9. Vitamin D started for Vitamin D level of 16.2. Pt with prior 17# weight loss from UBW over course of a year per pt. Possibly related to uncontrolled DM due to good oral intake/appetite. Pt eating 85-100% of meals. Obtained food preferences. RD will offer glucerna once daily to assist with wound healing. Available for any further diet questions that may arise. Low nutrition risk.
[2019-11-19 21:42] VITALS: BP 113/73
--- NOTE | 2019-11-20 00:54 | NUR ---
Assumed care of patient this pm shift. Patient sitting up in bed watching tv. Patient in good spirits, calm and cooperative. Patient uses handheld urinal at bedside. Patient takes medications whole. Patients assessment shows clear breath sounds, hypoactive bowel sounds, and s1 s2 heard with auscultation. Patient did not have any special requests or concerns this evening. We will continue to monitor per hospital protocol.
[2019-11-20 08:00] VITALS: BP 92/66
--- NOTE | 2019-11-20 10:06 | NUR ---
ASSUMED CARE AT 0700. PATIENT IS ALERT AND ORIENTED X4. PATIENT BASSETT'S, TAPE TRANSFERRER ARE EQUAL. PATIENT HAS RIGHT BKA WITH AMPUSHIELD IN PLACE. LUNGS ARE CLEAR. ABD IS SOFT WITH BSX4. UP WITH ASSIST OF 1 STAFF WITH GAIT BELT TO W/C, STAND, PIVOT, SIT. FALL AND SAFETY PROTOCOLS IN PLACE. C/O OCCASIONAL STUMP PAIN. PATIENT DID NOT WANT ANYTHING PRN AT THIS TIME. CONTINUES TO PROGRESS SLOWLY TOWARDS D/C GOALS. WILL CONTINUE TO MONITER.
--- NOTE | 2019-11-20 10:48 | HC ---
[facility] [place] [address] CONSULTATION Name: KALEB REDDY Room #: 515-P [facility] IN M.R.#: [id number] Admission: 11/18/19 Attend Phys: Thiago Snyder MD Discharge: Date of : 59 Report #: [id number] THIS REPORT FOR: cc: IRMA Bradford family physician/PCP IRMA Bradford family physician/PCP Perri Uribe MD ~ CC: Thiago SOLIS physician/PCP DATE OF SERVICE: 11/19/2019 ENDOCRINE CONSULTATION NOTE CONSULTING PHYSICIAN: Dr. Thiago Snyder. REASON FOR CONSULTATION: Uncontrolled type 2 diabetes mellitus. HISTORY OF PRESENT ILLNESS: This is a 64-year-old male patient whose medical background is significant for type 2 diabetes mellitus that was diagnosed over 10 years ago. The patient presented to [facility] on 11/12/2019 with right foot wound oozing, progressive osteomyelitis and gangrenous changes as well as missing toes. Further workup demonstrated that he was having severe osteomyelitis changes and he ended up undergoing a right below-knee amputation on 11/14/2019 which he tolerated well and had an uneventful perioperative course. While the patient was diagnosed with diabetes mellitus type 2 over 10 years ago, he acknowledges that he has not had any form of active therapy, home based monitoring, or medical followup for over 3 years, primarily due to lack of health insurance coverage and financial difficulties. The patient is not particularly aware of documented diabetic retinopathy or nephropathy and he has not had a significant cardiac history. REVIEW OF SYSTEMS: CONSTITUTIONAL: Fatigue, tiredness, but no fever or chills or significant changes in body weight. HEENT: Negative for sore throat, sinus pain or ear drainage. PULMONARY: Negative for shortness of breath, cough or hemoptysis. CARDIAC: Negative for chest pain, palpitations, syncope or presyncope. GASTROINTESTINAL: Negative for abdominal pain, nausea, vomiting or changes in bowel movement frequency. NEUROLOGY: Negative for loss of consciousness, headaches, seizure activity. PSYCHIATRIC: Negative for delusions, hallucinations, depression. Otherwise, review of systems noncontributory other than those mentioned in HPI. PAST MEDICAL HISTORY: 1. Type 2 diabetes mellitus. 2. Osteomyelitis of the right lower extremity, status post right BKA on [facility] [address] [place] [address] CONSULTATION Name: KALEB REDDY Room #: 515-P [facility] IN M.R.#: [id number] Admission: 11/18/19 Attend Phys: Thiago Snyder MD Discharge: Date of : 59 Report #: [id number] 11/14/2019 3. Vitamin D deficiency. 4. Subclinical hyperthyroidism. 5. Anemia. CURRENT MEDICATIONS: Include Lantus insulin 15 units daily, metformin 750 mg b.i.d., hydrocodone/acetaminophen q. 4 hours a.c., Colace 100 mg b.i.d. p.r.n., magnesium hydroxide, Tradjenta 5 mg daily. ALLERGIES: No known drug allergies. FAMILY HISTORY: Noncontributory. SOCIAL HISTORY: The patient denies use of tobacco, alcohol or illicit drugs. He is single. He lives alone. PHYSICAL EXAMINATION: GENERAL: Pleasant male patient who is not in apparent pain or distress. VITAL SIGNS: Blood pressure is 102/78 mmHg, heart rate is 61 beats per minute, respiration is 18 per minute, temperature 36.7 degrees Celsius. CONSTITUTIONAL: The patient is lying in bed, appears relatively comfortable, not in acute pain or distress. HEENT: Anicteric sclerae. Intact extraocular motions. NECK: Supple, without JVD, carotid bruits or lymphadenopathy. I do not appreciate thyromegaly. CHEST: Noted for good air entry bilaterally with scattered rales, but no wheezes or crackles. HEART: Regular rate and rhythm without murmurs or gallops. ABDOMEN: Soft, lax. No guarding. Active bowel sounds. EXTREMITIES: Lower extremity exam is noted for right BKA. The right lower extremity stump is wrapped in surgical dressing. NEUROLOGIC: Awake, alert and oriented to time, place and person. The remainder of his examination is largely nonfocal. PSYCHIATRY: Pleasant, interactive. Normal mood and affect. LABORATORY DATA: Blood glucose over the past 24 hours have predominantly been under 180 mg/dL without recordings of hypoglycemia. Sodium 135, potassium 4.0, chloride 100, CO2 of 27, anion gap 8, BUN 13, creatinine 0.8, AST 12, total bilirubin 0.3, calcium 8.8, magnesium 1.4, alkaline phosphatase 134, ALT 10, total protein 7.4, albumin 2.1. EGFR 98. Total cholesterol 112, triglycerides 92, HDL 21, LDL 73. Free T4 0.9. White blood count 7.2, hemoglobin 9.8, hematocrit 30.7, platelets 505. TSH 0.34. Hemoglobin A1c 9.9%. Vitamin D 16.2. TPO is negative at 6 and TSIs are not detectable. ASSESSMENT AND PLAN: [facility] [address] [place] [address] CONSULTATION Name: KALEB REDDY Room #: 515-P [facility] IN M.Jarrod.#: [id number] Admission: 11/18/19 Attend Phys: Thiago Snyder MD Discharge: Date of : 59 Report #: [id number] 1. Type 2 diabetes mellitus. As noted above, the patient has had a long uncontrolled history with a complete cessation of active therapy and a clinical followup for about 3 years. His hemoglobin A1c of 9.9% is consistent with this outlook. 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 The patient seems motivated to do so. Currently, the patient is maintained on a combination of Lantus insulin 15 units daily, Tradjenta 5 mg daily and metformin ER 750 mg b.i.d. with a seemingly good control overall. I will maintain the same as well as support with Humalog supplemental scale low intensity to be used as needed for hyperglycemia. Blood glucose monitoring will commence a.c. and at bedtime. I will make it a goal to try and transition the patient towards a combination of sulfonylurea and metformin and long-acting insulin, so as to utilize therapeutic choices that are financially accessible especially with the lack of health care coverage. It is important to keep that issue in mind as it has been a major barrier to care in the past and has set up the patient for poor control over the past 3 years. 2. Vitamin D deficiency. The patient was found to have vitamin D deficiency at 16.2. The patient was started on high dose vitamin D therapy in the form of ergocalciferol 50,000 International Units once weekly and he is to maintain the same for 2-3 months after which followup will be needed to assess his standing. 3. Hyperthyroidism. The patient presented with an outlook of subclinical hyperthyroidism with a slightly suppressed TSH, but perfectly normal free T4 levels. His serology workup has been negative. The patient is clinically euthyroid. I believe the patient would be suited for expectant monitoring without the necessity of active therapy at this point in time. No further workup is needed. 4. Osteomyelitis. The patient presented with severe osteomyelitis changes of the right foot, which culminated in the unfortunate loss of his limb with a right BKA. He is currently recovering and undergoing physical rehabilitation. I certainly appreciate this consultation by Dr. Snyder. <ELECTRONICALLY SIGNED> By: Perri Uribe MD 11/20/19 1048 [id number] [id number] Perri Uribe MD /nt
[2019-11-20 19:18] VITALS: BP 105/67
--- NOTE | 2019-11-21 01:04 | NUR ---
PT ALERT AND ORIENTED X 4. TRANSFERS TO W/C AND THEN TO TOILET WITH SUPERVISION. RIGHT BKA DRESSING C/D/I. BLOOD SUGAR 180 AT HS. INSULIN GIVEN ORDERED. PT STATES HE HAS SOME PAIN BUT IT'S NOT TOO BAD. REFUSED PAIN MEDS WHEN OFFERRED. ADVISED PT TO CALL FOR PAIN MEDS BEFORE PAIN GETS TOO SEVERE. HE STATED HE WOULD. BED ALARM ON FOR SAFETY. PT CHECKED ON HOURLY ROUNDS.
[2019-11-21 05:49] LABS: HEMATOCRIT 29.2 % (42.0-52.0); HEMOGLOBIN 9.6 gm/dL (14.0-18.0); MCHC 32.8 g/dL (28.0-37.0); MCV 82.3 fL (80.0-100.0); RBC 3.55 mil/uL (4.50-6.00); RDW 16.2 % (10.5-14.5); WBC 8.2 thou/uL (4.0-11.0)
[2019-11-21 05:58] LABS: CALCIUM 8.5 mg/dL (8.5-10.1); CREATININE 0.9 mg/dL (0.7-1.3); MAGNESIUM 1.5 mg/dL (1.8-2.4); POTASSIUM 4.4 mmol/L (3.5-5.1)
[2019-11-21 08:00] VITALS: BP 108/77
[2019-11-21 09:25] VITALS: BP 127/79
[2019-11-21 10:05] VITALS: BP 105/76
--- NOTE | 2019-11-21 10:08 | NUR ---
PATIENT IN WC AFTER OT TREATMENT, FOUND SLUMPED TO RT AND SLIDING OUT OF THE CHAIR, FOOD FALLING OUT OF HIS MOUTH, INATTENTION TO RT RIDE AND UNABLE TO FOLLOW DIRECTIONS. BELLA SIBLEY NP HAD FOUND PT AND CALLED OF[facility] HELP[place] [address] AND PT ASSISTED TO THE BED. BP 127/79, HR 88, CONFUSED AND APHASIC WITH RT ARM WEAKNESS AND INABILITY TO FOLLOW ANY DIRECTIONS. FSBS 152. PT TAKEN TO CT SCAN BY 0930, IV PLACED IN RT AC, AND CT DONE. NIHSS 12 PER ALIZA LEON RN ACCOMPANIED PT TO ICU NOW.
--- NOTE | 2019-11-21 10:20 | NUR ---
cm notified that pt change in condition called code stroke and it being dc to icu. will cont following as needed for dc needs.
--- NOTE | 2019-11-21 10:40 | NUR ---
POST DISCHARGE: ATTEPMT MADE TO GILES LEMOS, WHO IS LISTED THE "PERSON TO NOTIFY" IN CASE OF EMERGENCY, AND MESSAGE WAS LEFT ON THE GENERIC FOR THAT NUMBER TO PLEASE CALL NM AT EITHER [phone] OR [phone]. PATIENT WAS NOT ABLE TO VERBALIZE ANY OTHER FAMILY OR SUPPORT PEOPLE TO NOTIFY.
[2019-11-21 10:58] LABS: APTT 27.5 Seconds (24.5-32.8); PROTIME 10.6 Seconds (9.3-11.4)
--- NOTE | 2019-11-21 11:00 | NUR ---
LATE ENTRY: ASSUMED PT CARE AT 0700. RECEIVED REPORT FROM NIGHT NURSE PT HAD UNEVENFUL NIGHT. SLEPT GOOD. VSS ON RA THIS AM. OT CAME AND WORKED WITH PT. PT REQUESTS FOR PAIN MED. RATES PAIN 4/10 ON RIGHT BKA. MORNING MEDS AND PAIN MED WERE ABOUT TO BE GIVEN. WAS NOTIFIED THAT PT HAS A STROKE. ASSISTED WITH ASSESSMENT. SEE AILIN'S NOTE ABOUT STROKE. ASSISTED PT TO MOVE TO RADIOLOGY FOR CT SCAN AND GAVE REPORT TO NURSE AT CCU. NOTICED PT NEEDED TO MOVE TO ICU FROM CCU PER DOCTOR.
--- NOTE | 2019-11-21 14:06 | EKG ---
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
== END 2019-11-21 10:20 | disposition short-term general hospital (02) | DRG 539 ==
PROVIDERS: Hospitalist; Nurse Practitioner Family; ADMIT Physical Medicine & Rehabilitation
DX: M86.9 Osteomyelitis, unspecified (principal); E43 Unspecified severe protein-calorie malnutrition; L03.115 Cellulitis of right lower limb; E11.69 Type 2 diabetes mellitus with other specified complication; E55.9 Vitamin D deficiency, unspecified; D50.9 Iron deficiency anemia, unspecified; R26.9 Unspecified abnormalities of gait and mobility; E05.90 Thyrotoxicosis, unspecified without thyrotoxic crisis or storm; D64.9 Anemia, unspecified; E11.40 Type 2 diabetes mellitus with diabetic neuropathy, unspecified; R53.81 Other malaise; F10.10 Alcohol abuse, uncomplicated; Y90.9 Presence of alcohol in blood, level not specified; Z96.651 Presence of right artificial knee joint; Z79.4 Long term (current) use of insulin; Z79.84 Long term (current) use of oral hypoglycemic drugs; Z68.21 Body mass index [BMI] 21.0-21.9, adult; Z71.41 Alcohol abuse counseling and surveillance of alcoholic; Z89.511 Acquired absence of right leg below knee
CPT/HCPCS: 10112

== ENCOUNTER 2019-11-21 10:48 | Inpatient (IN) | payer OTHER ==
[2019-11-21] VITALS (40 sets, daily range): BP systolic 98–114; BP diastolic 62–78
[~2019-11-21] VITALS: Ht 177.8 cm; Wt 66.3 kg
--- NOTE | 2019-11-21 11:16 | NUR ---
chart review, pt dc off 5n rt change in condition with acute stroke. dc to icu. discussed during los, tpa tx. noted per chart. pt is unemployed, had hardship. was independent prior to hospital. human arc already consulted prior to 5n. no dme prior to hospital. lives alone and has landlord. no other support in area. will cont following as needed for dc needs.
[2019-11-21 11:59] LABS: ABSOLUTE NEUTROPHILS 8.2 thou/uL (1.4-8.2); BASOPHILS 0.3 % (0.0-2.0); EOSINOPHILS 1.8 % (0.0-3.0); HEMATOCRIT 31.5 % (42.0-52.0); HEMOGLOBIN 10.1 gm/dL (14.0-18.0); LYMPHOCYTES 10.7 % (24.0-44.0); MCH 26.3 pg (26.0-34.0); MCV 82.1 fL (80.0-100.0); MONOCYTES 5.5 % (1.0-8.0); PLATELET COUNT 368 thou/uL (150-400); POLYS 81.7 % (36.0-66.0); RBC 3.84 mil/uL (4.50-6.00); RDW 16.2 % (10.5-14.5)
--- NOTE | 2019-11-21 13:00 | NUR ---
PT ADMIT FROM REHAB AT 1040. CODE STROKE WITH ORDERS FOR TPA INFUSION. PT FIANLLY ADMITTED TO COMPUTER BY 1130. TPA BOLUS AND INFUSION STARTED. NIH PERFORMED PER PROTOCOL. NEURO CONSULT, EARLENE WOULD LIKE MRI TODAY, BUT OK TO SKIP IF UNABLE TO GET SCREENING FORM FILLED OUT. PT IS NOT A GOOD HISTORIAN.
--- NOTE | 2019-11-21 15:30 | NUR ---
to radiology per cart on monitor worker with CHRISTINA Camarena and RN.
--- NOTE | 2019-11-21 16:20 | NUR ---
RETURNED FROM RADIOLOGY PER CART WITH SWITCHING CLERK ACCOMPANIED BY DIRECTOR OF ANALYTICS AND RN.
--- NOTE | 2019-11-21 19:30 | NUR ---
PT PROGRESSING. TO MRI/MRA AFTER TPA ADMINISTERED. NIHSS-1, IMPROVED. NO SIGNS OR SYMPTOMS OF BLEEDING INCLUDING R BKA SITE AND PREVIOUS IV ATTEMPTS SITE/PREVIOUS BRUISE. SR, FOR A BRIEF PERIOD NOTED FREQUENT PVC'D AND COUPLETS THAN SPONTANEOUSLY RESOLVED. REMAINS NPO PENDING SPEECH EVAL. VOIDING ADEQUATE URINE OUTPUT. REPORT TO HERO TERESA RN.
[2019-11-22] VITALS (30 sets, daily range): BP systolic 82–115; BP diastolic 56–76
[2019-11-22 04:04] LABS: ALBUMIN 2.5 g/dL (3.4-5.0); ANION GAP 6 mmol/L (7-16); BUN 12 mg/dL (7-18); CALCIUM 8.2 mg/dL (8.5-10.1); CHLORIDE 100 mmol/L (98-107); CHOLESTEROL 174 mg/dL (<200); CO2 28 mmol/L (21-32); CREATININE 0.8 mg/dL (0.7-1.3); GLUCOSE 106 mg/dL (74-106); HDL CHOLESTEROL 31 mg/dL (>40); LDL CHOLESTEROL 104 mg/dL (<100); POTASSIUM 4.3 mmol/L (3.5-5.1); SGOT 88 U/L (15-37); SGPT 39 U/L (30-65); SODIUM 134 mmol/L (136-145); TC:HDL 5.6 Ratio (Not establshd); TOTAL BILIRUBIN 0.4 mg/dL (0.2-1.0); TOTAL PROTEIN 7.2 g/dL (6.4-8.2); TRIGLYCERIDE 195 mg/dL (<150); VLDL 39 mg/dL (<40)
[2019-11-22 04:48] LABS: SERUM ASSESSMENT Clear
--- NOTE | 2019-11-22 07:52 | NUR ---
Pt progressing toward goals. No signs of bleeding after receiving tPa. NIHSS has been 1-2 most of night due to mild expressive aphasia, but has been 0 since 0400. Monitor has been sinus rhythm with occasional PVC's. Voiding without difficulty. Pain adequately controlled with Morphine 2 mg IVP x1.
--- NOTE | 2019-11-22 09:29 | NUR ---
CONSULT [id number] COMPLETED BY THIS LOG MARKER.
--- NOTE | 2019-11-22 10:57 | NUR ---
NIHSS-1, echo completed- coronary thrombosis present in left ventricular apex. Cardiology consult placed. eeg in progress.
--- NOTE | 2019-11-22 12:15 | NUR ---
TO CT PER WHEELCHAIR AND BILL SORTER WITH DAVE ELIZALDE AND RN AT 1145. RETURNED FROM CT TO ICU AT 1215.
--- NOTE | 2019-11-22 16:43 | NUR ---
NO SIGNS/SYMPTOMS BLEEDING. REMAINS IN CHAIR. AWAITING PM MEAL. PT PROVIDED PHONE TO CONTACT FAMILY OR FRIENDS. PT STATED THAT HE IS ESTRANGED FROM FAMILY AND DOESN'T HAVE FRIENDS.
[2019-11-23] VITALS (16 sets, daily range): BP systolic 92–110; BP diastolic 59–72
--- NOTE | 2019-11-23 05:16 | NUR ---
ASSUMED PT CARE AT 1900. PT IS ALERT AND ORIENTED. NO SIGN OF DISTRESS NOTED IN PT. PT IS LAYING IN BED RESTING COMFORTABLY. FALL PRECAUTION IN PLACE. CALL LIGHT WITHIN REACH. ASSESSMENT COMPLETED AND DOCUMENTED. VITAL SIGNS STABLE. SCHEDULED MEDS ADMINISTERED TO PT. TOLERATED PO INTAKE. PAIN MED ADMINISTERED TO PT. NIH STROKE SCALE COMPLETED. NO EVENTS OVERNIGHTS. CONTINUE TO MONITOR PATIENT. DENIES ANY NEDS AT THIS TIME.
--- NOTE | 2019-11-23 14:20 | NUR ---
provided teaching related to diabetes and complications related to disease process. informed of yenni vega how related to the progression of diabetes, the elevated hg A1C- 9 and need for cardiac cath to potentially open cardiac vessels that contribute to his low EF-20%. informed and continued to reinforce the diabetes is not "fixed", there is still a disease process that must be well controlled to prevent similar or further complications. pt discussing ways to potentially exercise, ie swimming to prevent further diabetes complications. report given to tristan mosquera. heparin gtt started, no initial bolus, no bolus at all administered. pt transferred in wheelchair with classroom monitor to CCU # [id number].
--- NOTE | 2019-11-23 16:18 | NUR ---
PT TRANSFERED FROM ICU IN STABLE CONDITION. ORIENTED TO THE ROOM AND CALL LIGHT SYSTEM. FALL PRECAUTION IN PLACE. NO CONCERNS AT THIS TIME. WILL CONTINUE TO MONITOR.
[2019-11-24] VITALS (15 sets, daily range): BP systolic 96–116; BP diastolic 65–83
--- NOTE | 2019-11-24 08:06 | NUR ---
ASSUMED PT CARE AT 1900, PT IS AWAKE, ALERT AND ORIENTEDX4, SR ON THE MONITOR, VSS, ASSESSMENTS CHARTED, NPO AFTER MIDNIGHT, MEDICATION GIVEN ORDERED, C/O PAIN ON THEN RIGHT LOWER EXTREMITY, MEDICATED PRN, NO FURTHER COMPLAINS
--- NOTE | 2019-11-24 12:14 | 2DMMODE ---
[facility] [address] [place] [address] 2 D/M-MODE ECHOCARDIOGRAM Name: KALEB REDDY Room #: 214-P ADM IN M.R.#: [id number] Admission: 11/21/19 Attend Phys: George Chen Discharge: Date of : 59 Report #: [id number] THIS REPORT FOR: cc: FAM - No family physician/PCP FAM - No family physician/PCP Matias Awan MD ~ ADDENDUM APPROVED REPORT Study performed: 11/22/2019 08:41:18 EXAM: Comprehensive 2D, Doppler, and color-flow Echocardiogram Patient Location: Bedside Room #: 249 Status: routine BSA: 1.82 HR: 105 bpm BP: 105/69 mmHg Other Information Study Quality: Adequate Indications Diabetes CAD Stroke Echo Enhancing Agent Indication: Rule out Shunt and rule out LV clot Agent(s) / Amount(s) Used: Agitated Saline 6 cc Optison 4 cc 2D Dimensions RVDd: 25.96 mm IVSd: 8.12 (7-11mm) LVOT Diam: 23.76 (18-24mm) LVDd: 58.96 mm PWd: 10.18 (7-11mm) Ascending Ao: 38.84 (22-36mm) LVDs: 54.55 (25-40mm) Aortic Root: 31.80 mm IVC: 17.00 mm Volumes Left Atrial Volume (Systole) Single Plane 4CH: 42.05 mL Single Plane 2CH: 54.53 mL LA ESV Index: 32.00 mL/m2 [facility] [address] [place] [address] 2 D/M-MODE ECHOCARDIOGRAM Name: KALEB REDDY Room #: 214-P [facility] IN M.R.#: [id number] Admission: 11/21/19 Attend Phys: George Landers Discharge: Date of : 59 Report #: [id number] Aortic Valve AoV Peak Yunier.: 1.02 m/s AO Peak Gr.: 4.19 mmHg LVOT Max P.17 mmHg LVOT Max V: 0.54 m/s NOE Vmax: 2.34 cm2 Mitral Valve E/A Ratio: 2.3 MV Decel. Time: 63.95 ms MV E Max Yunier.: 0.90 m/s MV A Yunier.: 0.40 m/s MV PHT: 18.55 ms IVRT: 148.79 ms Pulmonary Valve PV Peak Yunier.: 0.74 m/s PV Peak Gr.: 2.20 mmHg Pulmonary Vein P Vein S: 0.40 m/s P Vein A: 0.24 m/s P Vein D: 0.30 m/s P Vein A Dur.: 65.7 msec P Vein S/D Ratio: 1.33 Tricuspid Valve RAP Estimate: 10.00 mmHg Left Ventricle Left ventricle is mildly dilated. There is global hypokinesis of the left ventricle. There is normal left ventricular wall thickness. Left ventricular ejection fraction is severely decreased. Small thrombus noted in apex of left ventricle. LVEF is 15-20%. Right Ventricle The right ventricle is normal size. Right ventricle is moderately hypokinetic. Atria Left atrium is at the upper limits of normal. No shunting by contrast bubble injection. The right atrium size is normal. Aortic Valve The aortic valve is normal in structure. Trace to mild aortic regurgitation. There is no aortic valvular stenosis. Mitral Valve The mitral valve is normal in structure. Mild mitral regurgitation. [facility] [address] [place] [address] 2 D/M-MODE ECHOCARDIOGRAM Name: REDDYKALEB Room #: 214-P ADM IN M.R.#: [id number] Admission: 11/21/19 Attend Phys: George Landesr Discharge: Date of : 59 Report #: [id number] Tricuspid Valve The tricuspid valve is normal in structure. There is no tricuspid valve regurgitation noted. Unable to assess PA pressure. Pulmonic Valve The pulmonary valve is normal in structure. Trace pulmonic regurgitation. Great Vessels The aortic root is normal in size. Ascending aorta is upper limits of normal at 3.9 cm. IVC is normal in size and collapses <50% with inspiration. Pericardium There is no pericardial effusion. <Conclusion> Left ventricle is mildly dilated. LVEF is 15-20%. There is global hypokinesis of the left ventricle. Left atrium is at the upper limits of normal. No shunting by contrast bubble injection. The aortic valve is normal in structure. Trace to mild aortic regurgitation. The mitral valve is normal in structure. Mild mitral regurgitation. The tricuspid valve is normal in structure. There is no pericardial effusion. LV apical echoes may represent small thrombus. <ELECTRONICALLY SIGNED> By: Matias Awan MD 11/24/19 121 11 11 Matias Awan MD /INF
--- NOTE | 2019-11-24 15:11 | NUR ---
Nutrition: pt admitted with CVA, S/P TPA. Familiar with pt from recent rehab admit. Hx DM, Right foot wound with osteo and BKA last admit. Usual intake is good, 100% of meals. Will add Glucerna BID to assist with wound healing. Prior DM diet and wound education done. A1C 9.9. Pt voices no present questions. Food preferences obtained. Pt with prior weight loss of 17# over the course of one year likely partly related to uncontrolled Dm and pt hx noncompliance with medications. Recent vitamin D level 16.2, REC vitamin D supplementation and resume carb controlled diet as appropriate. Low risk.
--- NOTE | 2019-11-24 16:32 | NUR ---
5N CONSULT RECEIVED ON THIS Pt. Pt WAS ON 5N ACUTE REHAB AND TRANSFERRED DOWN TO ACUTE HOSPITAL D/T CVA AND RECEIVED TPA. Pt TO HAVE CARDIAC CATH TODAY. MAY BE READY FOR D/C LATER THIS WEEK PER HOSPITALIST. WILL CONTINUE TO FOLLOW THIS Pt. THANK YOU FOR THIS CONSULT.
--- NOTE | 2019-11-24 18:41 | HC ---
[facility] [place] [address] CONSULTATION Name: KALEB REDDY Room #: 214-P ADM IN M.R.#: [id number] Admission: 11/21/19 Attend Phys: George Chen Discharge: Date of : 59 Report #: [id number] THIS REPORT FOR: cc: IRMA - Suzette family physician/PCP IRMA - Suzette family physician/PCP Carloz Floyd MD ~ CC: Thiago SOLIS physician/PCP George Chen DATE OF SERVICE: 11/21/2019 HISTORY OF PRESENT ILLNESS: This is a 64-year-old male patient who was seen by me for a stroke protocol. I talked to Dr. Chen, the admitting physician as well as his nurse practitioner. Apparently, he had some weakness on the right side and speech difficulty. He underwent a first CT scan of the head and subsequently as I understand, CT angiogram of the head and neck. CT perfusion was also done and that demonstrated penumbra in the left cerebral hemisphere distribution. He had amputation, little more than a week ago. Dr. Chen initially evaluated this patient as I was in [facility]. After talking to the surgeon, he decided to proceed with TPA and the patient is getting TPA. The nurses have the number and the patient's chart has the number, I tried to call both numbers to discuss with the family or anybody else I can get hold of, but there is no answer to those numbers. This patient is markedly aphasic at the moment. It is not possible to talk to him. REVIEW OF SYSTEMS: Positive for diabetes as well as amputation. Not much other history is available except as summarized in the patient's chart. PAST MEDICAL HISTORY: Positive for amputation. FAMILY HISTORY: Unavailable except in the chart. SOCIAL HISTORY: Unavailable except in the chart. PHYSICAL EXAMINATION: The patient is alert. He tries to talk, then he wanders off. He does not know what month it is. When I asked him to raise his arms, he is unable to do it. When I show him how to raise his arm, then he is able to do it. He moves both sides and his cooperation is not good enough to tell any subtle differences on both sides, but he appeared to be better than he was. He does not appear to have any facial weakness, I cannot tell about hemianopsia. No respiratory difficulty. IMPRESSION: This patient clinically does appear to have a left hemispheric cerebrovascular accident. He has been started on TPA. I reviewed the [facility] [address] [place] [address] CONSULTATION Name: KALEB REDDY Room #: 214-P [facility] IN M.R.#: [id number] Admission: 11/21/19 Attend Phys: George Chen Discharge: Date of : 59 Report #: [id number] literature in that regard and this is an off level indication for TPA. The bleeding from the site can occur in about 14% of the people, but surgeon has already been contacted. The patient's aphasia is so dense at the moment that is what taking the risk, but it was very desirable to describe to the family, but we cannot reach anybody, but he already is getting TPA and he has not shown any signs of bleeding and I think we can just observe her. He needs a thorough workup for cardioembolization when he stabilizes. His MRI is already scheduled. He cannot fill up the MRI questioner, but once is filled up, then I think we should proceed with MRI and MRA as ordered and see if that shows any abnormality. Thank you very much for this referral. We will follow this patient later on today. <ELECTRONICALLY SIGNED> By: Carloz Floyd MD 11/24/19 184 1216 184 Carloz Floyd MD /nt
--- NOTE | 2019-11-24 18:41 | EEG ---
[facility] [place] [address] ELECTROENCEPHALOGRAM Name: KALEB REDDY Room #: 214-P ADM IN M.R.#: [id number] Admission: 11/21/19 Attend Phys: George Wood Discharge: Date of : 59 Report #: [id number] THIS REPORT FOR: //name// CC: Thiago Snyder [facility] physician/PCP George Chen DATE OF SERVICE: 11/22/2019 This patient is being evaluated for episode of confusion and speech difficulty. EEG was done by placing the electrode by standard 10-20 system of electrode placement. Both referential and sequential montages were used for recording. Background activity in this patient's EEG is about 10 Hz and 30 microvolts. It is somewhat low voltage on the left side. Photic stimulation is unremarkable. The patient became drowsy and that is associated with bilateral slowing and vertex sharp waves. Throughout the record, no active epileptiform activity was noted. IMPRESSION: This patient's EEG is unremarkable. Thank you very much for this referral. <ELECTRONICALLY SIGNED> By: Carloz Floyd MD 11/24/19 1841 [id number] 1625 Carloz Floyd MD /nt
--- NOTE | 2019-11-24 20:10 | NUR ---
ASSUMMED PT CARE AT APPROXIMATELY 0700. PT A&O X4. ASSESSMENT CHARTED. FALL PRECAUTIONS IN PLACE. PT DENIES HAVING CHEST PAIN. PT DENIES HAVING SOB. PT DENIES HAVING ACUTE PAIN. PT HAD NON INTERVENTIONAL CATH PROCEDURE. HEPARIN PROTOCOL FOLLOWED. INFORMED PHARMACIST THAT IV PUMP INFORMED ME THAT 20 UNITS/KG/HR WAS THE PT'S MAX DOSE. DARRIAN, PHARMACIST STATED TO KEEP HEPARIN AT 20 UNITS/KG/HR. INFORMED HIDES INSPECTOR RN'S. HIDES INSPECTOR RN'S STATED UNDERSTANDING AND DENIED HAVING FURTHER CONCERNS. R GROIN C/D/I. NO HEMATOMA. VITAL SIGNS STABLE. PT AMBULATES STEADY C WALKER AND X1 ASSIST. PT COMFORTABLE. PT DENIES HAVING FURTHER CONCERNS. BLOOD SUGARS STABLE.
[2019-11-25] VITALS: BP 102/67
[2019-11-25 00:45] VITALS: BP 103/64
[2019-11-25 04:45] VITALS: BP 99/65
[2019-11-25 05:48] LABS: CALCIUM 8.4 mg/dL (8.5-10.1); CREATININE 0.8 mg/dL (0.7-1.3); POTASSIUM 3.9 mmol/L (3.5-5.1)
--- NOTE | 2019-11-25 07:39 | NUR ---
ASSUMED CARE OF PATIENT AT 1900. PATIENT AMBULATED TO BATHROOM FROM BED WITH WALKER. PATIENT WAS STEADY ON ONE LEG. PATIENT HAD NO S/S OF ACTIVE BLEEDING. PATIENT REQUESTED PRN TYLENOL ONCE FOR REPORTED PHANTOM PAIN IN HIS RIGHT BKA. PATIENT RESTED WELL THROUGH NIGHT AND IS PROGRESSING TOWARDS GOALS.
[2019-11-25 08:00] VITALS: BP 93/68
[2019-11-25] MEDS ORDERED: ATORVASTATIN CA10 MG PO (08:38)
[2019-11-25] MEDS ORDERED: CARVEDILOL3.125 MG PO (08:38)
[2019-11-25] MEDS ORDERED: LISINOPRIL2.5 MG PO (08:39)
[2019-11-25] MEDS ORDERED: PANTOPRAZOLE SO40 M1 PO (08:39)
[2019-11-25] MEDS ORDERED: ELIQUIS5 M1 PO (08:45)
--- NOTE | 2019-11-25 12:56 | NUR ---
ASSUMED CARE APPROX 0700. PT ALERT AND ORIENTED X4. ASSESSMENTS CHARTED AND VSS. PT DENIES ACUTE PAIN, BUT DOES HAVE PERIODIC PHANTOM PAIN TO RT BKA. DECLINES PAIN MEDICATION AT THIS TIME. HEPARIN GTT D/C'D PER ORDERS. PT SWALLOWING WITH NO COMPLICATIONS. RT GROIN POST CATH SITE C/D/I. NO HEMATOMA PRESENT. NO SIGNS OF ACUTE DISTRESS NOTED. REPORT GIVEN TO 5N NURSEALE. PT WILL BE TRANSPORTED TO UNIT WHEN BED IS AVAILABLE. TELE MONITOR D/C'D.
--- NOTE | 2019-11-25 14:04 | HC ---
[facility] [address] CONSULTATION Name: KALEB REDDY Room #: 214-P ADM IN M.R.#: [id number] Admission: 11/21/19 Attend Phys: George Chen Discharge: Date of : 59 Report #: [id number] THIS REPORT FOR: cc: IRMA - No family physician/PCP IRMA - No family physician/PCP Gera Koroma MD ~ CC: Thiago Snyder [facility] physician/PCP George Chen CARDIOLOGY CONSULTATION REASON FOR CONSULTATION: CVA and low EF. HISTORY OF PRESENT ILLNESS: The patient is a 64-year-old who has a history of prior coronary artery disease, status post CABG by Dr. Bowen at [facility] approximately 10 years ago he says. He also has a history of peripheral vascular disease and on November 11, was admitted here to the hospital and had osteomyelitis and gangrene of his right foot and underwent a right guwwk-ocz-okro amputation and has been up in rehab since then. He had stroke-like symptoms yesterday, had an MRI showing a lesion in the left parietal region and received TPA. The patient had an echocardiogram today showing decreased ejection fraction around 25% and possible thrombus in the apical left ventricle. The patient denies any active chest pain. His shortness of breath is stable. He denies PND or orthopnea. He denies presyncope or syncope. REVIEW OF SYSTEMS: A 12-point review of systems was performed and was negative other than mentioned above. PAST MEDICAL HISTORY: As above. SOCIAL HISTORY: Does not smoke, does use some alcohol in the past. FAMILY HISTORY: Noncontributory. ALLERGIES: Reviewed. MEDICATIONS: Reviewed. PHYSICAL EXAMINATION: VITALS: Reviewed. GENERAL: No acute distress. HEENT: Oropharynx clear. NECK: Supple, with no thyromegaly. HEART: Regular rate and rhythm with no murmurs, rubs or gallops. [facility] [address] [place] [address] CONSULTATION Name: KALEB REDDY Room #: 214-P [facility] IN .R.#: [id number] Admission: 11/21/19 Attend Phys: George Chen Discharge: Date of : 59 Report #: [id number] LUNGS: Clear to auscultation bilaterally. ABDOMEN: Soft, nontender, and nondistended. EXTREMITIES: No clubbing, cyanosis, or edema. His right stump is dressed. NEUROLOGIC: His cranial nerves 2-12 appear to be grossly intact. LABORATORY DATA: White count is 10, hemoglobin 10, and platelets 368. Coags are pending. Sodium 134, creatinine 0.8. Troponin is negative x1. His LDL is 104, HDL 31, triglycerides 195. His EKG shows sinus rhythm with no ischemic changes. His telemetry shows sinus rhythm with occasional PVCs. IMAGING STUDIES: His echocardiogram shows decreased EF 20-25% and possible LV thrombus versus false tendon versus trabeculated myocardium. ASSESSMENT: 1. Possible left ventricular thrombus. Recommend anticoagulation with heparin per neurologist's recommendations. After discussing with hospitalist, they would like to hold off on heparin until tomorrow. 2. Coronary artery disease. The patient has evidence of likely ischemic cardiomyopathy with decreased ejection fraction. I will discuss these findings with Interventional Cardiology and we will discuss possible cardiac catheterization on Sunday. 3. Ischemic cardiomyopathy. We will need to start on a beta-allison and HADLEY inhibitor therapy. The patient appears euvolemic and therefore, diuresis was not required at this time. We will continue to follow. <ELECTRONICALLY SIGNED> By: Gera Koroma MD 11/25/19 1404 1216 1417 Gera Koroma MD /nt
[2019-11-25 16:43] VITALS: BP 99/70
--- NOTE | 2019-11-26 10:35 | CATHLAB ---
[facility] [place] [address] INVASIVE PROCEDURE REPORT Name: KALEB REDDY Room #: 214-P [facility] IN M.R.#: [id number] Admission: 11/21/19 Attend Phys: George Chen Discharge: 11/25/19 Date of : 59 Report #: [id number] THIS REPORT FOR: cc: FAM - No family physician/PCP FAM - No family physician/PCP Matias Awan MD ~ APPROVED REPORT Study performed: 11/24/2019 14:39:32 Patient Details Patient Status: In-Patient Room #: The patient is a 64 year-old male Event Personnel Matias Awan Space Systems Operations Manager, Pamela Sal RN RN, Sara Mena Paschal, Ja'net RTR Monitor Procedures Performed Left Heart Cath Coronaries, Bypass Grafts [id number] CCORCABG Art Access - R femoral artery* 24048 Initial Mod Sed Same Phys/QHP Gr5y 800071, supervision with conscious sedation Indication Cardiomyopathy, Chest pain Procedure Narrative The patient was brought electively to the Cardiac Catheterization Laboratory and was prepped and draped in a sterile manner. The Right Groin^ was infiltrated with 1% Lidocaine subcutaneous anesthesia. A PINNACLE 4FR Sheath #[id number] sheath was inserted into the RFA^. Coronary angiography was performed using coronary diagnostic catheters. The right coronary system was accessed and visualized with a JR4 catheter. The left coronary system was accessed and visualized with a JL4 catheter. The left ventricle was accessed and visualized with a JR4 catheter. Hemostasis was obtained with manual pressure following sheath removal without any complications. The patient tolerated the procedure well and there were no complications associated with the procedure. There was no hematoma. Intraoperative Conscious Sedation Sedation start time: 15:23 Case end Time: 15:55 [facility] [address] [place] [address] INVASIVE PROCEDURE REPORT Name: KALEB REDDY Room #: 214-P [facility] IN ..#: [id number] Admission: 11/21/19 Attend Phys: George Landers Discharge: 11/25/19 Date of : 59 Report #: [id number] Versed 2 mg Fluoro Time: 4.41 minutes Dose: DAP 3879.70 cGycm2 561 mGy Contrast Type and Amount: Omnipaque 100 ml Coronary Angiography The patient's coronary anatomy is right dominant. [place] Artery Percent Stenosis Grafts (Complete if Previous CABG=Yes: Percent Stenosis) Left Main: % Prox LAD: % Mid/Distal LAD: Patent MONTES % Circumflex: Patent % RCA: 100 % Ramus: % Diagnostic Cath Left Main Large-caliber vessel of normal origin bifurcates left at the same left circumflex. Mild irregularities are noted with distal tapering but no high-grade obstructive lesion LAD Small caliber vessel completely occluded proximally. Mid and distal LAD is visualized via imaging of the left intramammary graft and demonstrates a normal-appearing graft and anastomosis. The cachil dehe LAD from the midportion to the apex is quite small in size and has high-grade sequential lesions throughout his course with diffuse disease Diagonal 1 Small diminutive vessel Circumflex Totally occluded proximally after the origin of the left main. The mid and distal portions and marginal branches fill via patent saphenous vein graft with patent sequential anastomosis. OM1 Moderate less than 50% disease distal to the stenosis and a isolated location OM2 Moderate single lesion less than 50% noted distal to the anastomosis Right Coronary Small caliber vessel normal origin completely occluded at the acute margin. PDA and distal right fills faintly via left to right collaterals. SVG to the right coronary system has slow flow and totally occluded prior to the cachil dehe vessel anastomosis Left Ventriculography Left Ventriculography was not performed. Hemodynamics The aortic pressure is 107/66 mmHg with a mean of mmHg. The left ventricular pressure is 108/11 mmHg with a mean of mmHg. The left ventricular end diastolic pressure is 16 mmHg. There was no gradient across the aortic valve upon pullback. [facility] [address] [place] [address] INVASIVE PROCEDURE REPORT Name: KALEB REDDY Room #: 214-P [facility] IN M.R.#: [id number] Admission: 11/21/19 Attend Phys: George Landers Discharge: 11/25/19 Date of : 59 Report #: [id number] Conclusion 1. Coronary artery disease severe post aortocoronary bypass grafting with progression of cachil dehe lesions 2. Abnormal hemodynamics with elevated left ventricular end-diastolic pressure Recommendations Cardiac Risk Reduction Program Aggressive Medical Therapy <ELECTRONICALLY SIGNED> By: Matias Awan MD 11/26/19 1032 103 103 Matias Awan MD /INF
== END 2019-11-25 17:08 | DRG 61 ==
LOC: ICU 10:48 → 2N 11-23 12:51
PROVIDERS: Internal Medicine; ADMIT Hospitalist
PROC: 4A023N7 Measurement of Cardiac Sampling and Pressure, Left Heart, Percutaneous Approach (ICD-10-PCS; principal; 2019-11-21)
PROC: B2111ZZ Fluoroscopy of Multiple Coronary Arteries using Low Osmolar Contrast (ICD-10-PCS; principal; 2019-11-21)
PROC: B2131ZZ Fluoroscopy of Multiple Coronary Artery Bypass Grafts using Low Osmolar Contrast (ICD-10-PCS; principal; 2019-11-21)
PROC: 3E03317 Introduction of Other Thrombolytic into Peripheral Vein, Percutaneous Approach (ICD-10-PCS; principal; 2019-11-21)
DX: I63.9 Cerebral infarction, unspecified (principal); E43 Unspecified severe protein-calorie malnutrition; M86.171 Other acute osteomyelitis, right ankle and foot; I23.6 Thrombosis of atrium, auricular appendage, and ventricle as current complications following acute myocardial infarction; I47.1 Supraventricular tachycardia; E11.69 Type 2 diabetes mellitus with other specified complication; I25.5 Ischemic cardiomyopathy; I73.9 Peripheral vascular disease, unspecified; I25.10 Atherosclerotic heart disease of native coronary artery without angina pectoris; E05.90 Thyrotoxicosis, unspecified without thyrotoxic crisis or storm; D64.9 Anemia, unspecified; G93.89 Other specified disorders of brain; F10.10 Alcohol abuse, uncomplicated; Z95.1 Presence of aortocoronary bypass graft; Z89.011 Acquired absence of right thumb; Z79.84 Long term (current) use of oral hypoglycemic drugs; Z79.891 Long term (current) use of opiate analgesic; Z79.899 Other long term (current) drug therapy; Z79.4 Long term (current) use of insulin; I69.398 Other sequelae of cerebral infarction; Z68.21 Body mass index [BMI] 21.0-21.9, adult
CPT/HCPCS: 10078; 10081

== ENCOUNTER 2019-11-25 11:35 | Inpatient (IN) | payer OTHER ==
[~2019-11-25] VITALS: Ht 177.8 cm; Wt 64.9 kg
[~2019-11-25 11:35] MED LIST changes: +ATORVASTATIN CA10 MG PO; +CARVEDILOL3.125 MG PO; +ELIQUIS5 M1 PO; +LISINOPRIL2.5 MG PO; +PANTOPRAZOLE SO40 M1 PO
[2019-11-25 19:17] VITALS: BP 95/60
--- NOTE | 2019-11-25 19:17 | NUR ---
ASSUMED CARE OF PT AT 1700 WHEN PT BROUGHT TO UNIT BY NURSING STAFF. RECEIVED REPORT FROM BEAN CALIX PRIOR TO PT TRANSFER. MEDICATIONS FAXED TO PHARMACY, CONSENTS SIGNED, ADMISSION ASSESSMENT COMPLETED, ADMISSION EDUCATION PROVIDED, VITAL SIGNS AND WEIGHT OBTAINED. PT IS A&OX4, HR REGULAR, LUNG SOUNDS CLEAR, BOWEL SOUNDS ACTIVE. ACCU CHECKS ACHS. PT REPORTS PAIN TO RIGHT BKA, BUT DENIES NEED FOR PAIN MEDICAITONS AT THIS TIME. DRESSING TO RIGHT BKA IN PLACE. FALL PRECUTIONS IN PLACE AND NURSING WILL CONTINUE TO MONITOR.
--- NOTE | 2019-11-26 05:45 | NUR ---
TYLENOL HELPFUL FOR RLE PAIN (INCISIONAL VS PHANTOM) AND AGAIN AT MIDNIGHT WHEN HAVING TROUBLE STARTING TO SLEEP. USING URINAL. BLOOD SUGAR 148 AT HS, SNACK WITH METFORMIN XR
[2019-11-26 06:31] LABS: HEMATOCRIT 29.1 % (42.0-52.0); HEMOGLOBIN 9.3 gm/dL (14.0-18.0); MCH 26.3 pg (26.0-34.0); MCHC 31.8 g/dL (28.0-37.0); MCV 82.8 fL (80.0-100.0); RBC 3.52 mil/uL (4.50-6.00); WBC 4.3 thou/uL (4.0-11.0)
[2019-11-26 06:45] VITALS: BP 97/67
[2019-11-26 06:48] LABS: CALCIUM 8.3 mg/dL (8.5-10.1); CREATININE 0.9 mg/dL (0.7-1.3); POTASSIUM 3.9 mmol/L (3.5-5.1)
--- NOTE | 2019-11-26 11:26 | NUR ---
Nutrition: pt admitted to rehab unit S/P right BKA on previous admit 11/13 and acute CVA this admit. Intake is excellent, 100% of meals and enjoys Glucerna BID. RD has obtained food preferences, reviewed protein needs. Prior weight loss of 17# over the course of one year partly related to uncontrolled DM and pt noncompliance with medications. Now on Insulin glargine, linagliptin, metformin. BG 118-278, A1C 9.9. Prior DM diet education done with no current questions. Available for review as needed. Severe malnutrition is documented by physician-defer. Vitamin D level 16.2 with no supplement ordered. REC vitamin D supplementation. Place as low nutrition risk.
--- NOTE | 2019-11-26 11:31 | NUR ---
Nutrition: REC order vitamin D supplementation due to vitamin D level 16.2.
--- NOTE | 2019-11-26 13:38 | NUR ---
ASSUMED CARES AT 0700. PT AWAKE, ALERT AND ORIENTED*4. C/O RIGHT LE PAIN, PAIN MEDICATION ADMINISTERED NEEDED. VITALS REMAIN STABLE. DRESSING ON RIGHT GROIN REMAINS DRY AND INTACT. PT UP WITH 1 MIN ASSIST, GB AND WALKER AND TOLERATED WELL. Q1H VISUAL CHECKS. CALL LIGHT WITHIN REACH. FALL PRECAUTIONS IN PLACE
--- NOTE | 2019-11-26 15:56 | NUR ---
Pt readmitted to 5N acute rehab s/p cva with recent Rt BKA. Lap Welder visited with the pt via phone. CM role reintroduced. The pt indicates that he is hoping to return to indep living at his rental home at [place]. He has 20 steps w/ handrails to enter. He was indep with no dme prior to admission. He has not been able to work for several months due to his worsening health situation. Based on his EF 15%, Rt BKA and acute and old CVA; social security disability and [place] medicaid as well as a food stamp application is recommended. [employer] liason alerted to need. Pt anticipating call from the [employer] liason to get this process started. He does have a bank acct with limited funds. He does not own any property but a vehicle. He has limited support and utilizes his landlord [employer] as an emergency contact. He was in the [employer] at one time but is not sure if he is eligible for any VA benefits. He has no income at this time and is grateful for help with resouces and f/u care. He does not have a pcp or clinic for f/u care. His parents in 2012 and he is not and does not have children. He reports his siblings are estranged from him for many years. CM to f/u with [employer] and initiate referrals for a saftey net clinic, food stamps, and vouch his meds/dme at [place]. Team conference next sunday to determine his los and progress with rehab. Will follow.
[2019-11-26 16:46] LABS: PROTIME 10.3 Seconds (9.3-11.4)
[2019-11-26 18:56] VITALS: BP 98/66
--- NOTE | 2019-11-27 03:52 | NUR ---
ASSUMED CARE AT APPROX 1900 EVENING 11/25. PT SITTING UP IN BED ALERT AND ORIENTED X4, SOMWHAT FORGETFUL. PT PLEASANT AND COOPERATIVE. PT WITH HADLEY WRAP TO RIGHT LOWER LEG ELEVATED ON PILLOW. PT GIVEN PO TYLENOL AT HS FOR PAIN. PT TOOK HS MEDS WITH WATER TOLERATINNG WELL. PT VOIDINNG PER URINAL. PT APPEARS TO BE SLEEPING SOUNDLY WITH HOURLY ROUNDING CHECKS. BED ALARM ON AND CALL LIGHT IN REACH. WILL CONTINUE TO MONITOR.
[2019-11-27 08:00] VITALS: BP 99/72
--- NOTE | 2019-11-27 14:27 | NUR ---
ASSUMED CARES AT 0700. PT AWAKE, ALERT AND ORIENTED*4. DENIES PAIN AT THIS TIME. VITALS STABLE. DRESSING ON RIGHT GROIN DC'D, NO BLEEDING NOTED, WILL CONTINUE TO MONITOR. INCISION ON R BKA CLEANED AND DRESSING CHANGED, PATO REMAIN DRY AND INTACT. PT UP WITH 1 MIN ASSIST, GB AND WALKER. AMBULATING WITH W/C AROUND THE UNIT THIS AFTERNOON. FREQ VISUAL CHECKS. CALL LIGHT WITHIN REACH. FALL PRECAUTIONS IN PLACE
[2019-11-27 20:00] VITALS: BP 101/67
--- NOTE | 2019-11-28 02:53 | NUR ---
PATIENT HAS BEEN IN BED WATCHING TV SINCE 190 WHEN I ASSUMED PATIENT CARE. PATIENT'S VSS WITH BP RUNNING AT 99/68. PATIENT HAS BKA WHERE HE HAS DAILY DRESSING CHANGE TO STUMP THAT HAS PATO IN PLACE DAILY. STUMP HAS ACEWRAP WRAPPED AROUND IT AND IT IS DRY AND INTACT. PT STATES HE HAS SLIGHT TENDERNESS 2/10 ALL THE TIME. TYLENOL 650MG PO GIVEN WITH HS MEDS. PATIENT HAS BEEN IN [facility] TONIGHT AND SMILING AND PLEASANT. HE TOOK HIS HS MEDS WHOLE WITHOUT ISSUE. HIS HS GLUCOSE WAS 86. HIS LISPRO INSULIN IS ON HOLD AT THIS TIME. HS SNACK OF PUDDING AND RACHEL CRACKERS GIVEN TO PATIENT. HE IS A/0X4. PATIENT VOIDS USING URINAL WHILE IN BED. PATIENT SLEEPING. ROUTINE ROUNDS. CONTINUING TO MONITOR.
[2019-11-28 05:30] LABS: INR 1.1; PROTIME 11.6 Seconds (9.3-11.4)
--- NOTE | 2019-11-28 07:40 | NUR ---
cm delivered [place] food stamp application for pt to start filling out and a pen to write with. will cont following as needed for dc needs.
[2019-11-28 08:00] VITALS: BP 100/69
--- NOTE | 2019-11-28 15:49 | NUR ---
ASSUMED CARES AT 0700. REPORTS SLEP GOOD LAST NIGHT.PT AWAKE, ALERT AND ORIENTEDX4, ABLE TO VOICE HIS NEEDS. C/O HAVING FLATOM PAIN AT TIME. DENIES PAIN AT THIS TIME. VITALS STABLE ON RA.DRESSING ON RIGHT GROIN INTACT, NO BLEEDING NOTED, WILL CONTINUE TO MONITOR. INCISION ON R BKA CLEANED AND DRESSING CHANGED, PATO REMAIN DRY AND INTACT. PT UP WITH 1 MIN ASSIST, GB AND WALKER.REASSESSMENT PER CHART. HAD BM THIS AM. AMBULATING WITH W/C. FREQ VISUAL CHECKS. CALL LIGHT WITHIN REACH. FALL PRECAUTIONS IN PLACE.
[2019-11-28 19:00] VITALS: BP 102/65
--- NOTE | 2019-11-29 02:41 | NUR ---
ASSUMED CARE AROUND 1900, PT A&O X 4, NO ACUTE DISTRESS OVERNIGHT. VSS, O2 ON RA. PT RECEIVED PRN TYLENOL FOR PHANTOM PAIN TO R BKA WITH ADEQUATE RELIEF. MEDS GIVEN PER ORDERS, BG ACHS, NO SS NEEDED. CONTINENT OF B&B, BM DURING DAYSHIFT, USES URINAL. PT ASLEEP, CALL LIGHT WITHIN REACH, WILL CONTINUE TO MONITOR PER POC.
[2019-11-29 05:47] LABS: INR 1.1; PROTIME 11.3 Seconds (9.3-11.4)
[2019-11-29 08:30] VITALS: BP 103/70
--- NOTE | 2019-11-29 14:11 | NUR ---
ASSUMED CARES AT 0700.PT IS IN ROOM 501. PT AWAKE, ALERT AND ORIENTEDX4, ABLE TO VOICE HIS NEEDS. C/O HAVING FLATOM PAIN, PRN TYLENOL GIVEN PRIOR THERAPY. DENIES PAIN AT THIS TIME. VITALS STABLE ON RA. INCISION ON R BKA CLEANED AND DRESSING CHANGED, PATO REMAIN DRY AND INTACT. PT UP WITH 1 MIN ASSIST, GB AND WALKER.REASSESSMENT PER CHART. HAD BM THIS AM. AMBULATING WITH W/C. OFFERED SUPPORTIVE CARE. REASSESSMENT PER CHART. BS MONITOR INSULIN AND MEDS GIVEN ORDERED.FREQ VISUAL CHECKS. CALL LIGHT WITHIN REACH. FALL PRECAUTIONS IN PLACE.
[2019-11-29 19:07] VITALS: BP 105/73
--- NOTE | 2019-11-30 02:48 | NUR ---
TYLENOL FOR MODERATE PAIN IN RIGHT LOWER EXTREMITY. STATES PAIN FLUCTUATES FROM 3 TO 6 AND SOMETIMES FEELS LIKE PHANTOM PAIN AND AT OTHER TIMES INCISIONAL AND SOMETIMES JUST PLAIN HARD TO TELL THE DIFFERENCE. DRESSING FRESHLY CHANGED AT 1900. URING URINAL AT BEDSIDE
[2019-11-30 07:00] VITALS: BP 98/69
[2019-11-30 08:30] LABS: INR 1.2; PROTIME 11.8 Seconds (9.3-11.4)
--- NOTE | 2019-11-30 14:19 | NUR ---
ASSUMED CARES AT 0700. PT AWAKE, ALERT AND ORIENTED*4. DENIES PAIN. VITALS REMAIN STABLE. WOUNDCARE TO RIGHT BKA INCISION COMPLETED, PATO REMAIN DRY AND INTACT. PT UP WITH 1 SBA, GB AND W/C AND TOLERATED WELL. Q1H VISUAL CHECKS. CALL LIGHT WITHIN REACH. FALL PRECAUTIONS IN PLACE
[2019-11-30 19:08] VITALS: BP 94/64
--- NOTE | 2019-11-30 20:11 | HC ---
[facility] [place] [address] CONSULTATION Name: KALEB REDDY Room #: 501-A [facility] IN M.R.#: [id number] Admission: 11/25/19 Attend Phys: Thiago Snyder MD Discharge: Date of : 59 Report #: [id number] THIS REPORT FOR: cc: IRMA [facility] family physician/PCP IRMA [facility] family physician/PCP Jun Palmer PhD ~ CC: Thiago SOLIS physician/PCP DATE OF SERVICE: 11/29/2019 NEUROBEHAVIORAL STATUS EXAM ATTENDING PHYSICIAN: Thiago Snyder MD SALON ASSISTANT: Jun Palmer, PhD CLINICAL PRESENTATION: The patient is a 64-year-old male admitted to the rehabilitation unit at [facility] for a comprehensive inpatient rehabilitation program. The patient was initially admitted to the hospital with a right pprhz-azp-cgvk amputation. His course was complicated by sudden onset of aphasia. The patient presented with a left hemisphere CVA. His medical workup revealed a small right posterior frontal lobe infarction and a subacute ischemic infarction. Some weakness in the left upper extremity noted. His diagnostic assessment on admission to the rehab unit is a left parietal subacute infarction, an old right frontal lobe infarction, osteomyelitis, status post right nbqeo-ble-gylk amputation, significant coronary artery disease with decreased ejection fraction and ischemic cardiomyopathy, diabetes mellitus type 2, vitamin D deficiency, and protein-calorie malnutrition. A complete description of his medical condition and history can be found in his medical record. Neuropsychological consultation was requested to provide assistance in the assessment of cognitive and emotional status and to provide recommendations and services. Prior to this most recent admission, he was living alone in his own home. The patient never and has no children. He is a high school graduate with additional years of college. He reports having worked for a [employer] company until about August of this year and had been unable to return to work. He does not report a prior history of treatment for alcohol or drug abuse or mood/behavior disorder. TECHNIQUES UTILIZED: Clinical interview, review of medical records, staff consultation and behavioral observation, mini mental status exam 2 standard version, clock drawing and brief verbal fluency assessment. [facility] [address] [place] [address] CONSULTATION Name: KALEB REDDY Room #: 501-A [facility] IN .R.#: [id number] Admission: 11/25/19 Attend Phys: Thiago Snyder MD Discharge: Date of : 59 Report #: [id number] EXAMINATION FINDINGS: The patient was alert and cooperative with the assessment. He accurately described events surrounding his admission. There is no evidence of aphasia. His thoughts are logical and goal oriented. There is no evidence of thought disorder. He does not report auditory or visual hallucinations. However, he does present with decreased speed of processing and difficulty with word finding and memory since his stroke. Verbal fluency ppears effortful. Difficulty with sleep, anxiety and phantom limb pain is also reported. His performance on the MMSE 2 brief version within normal limits with a raw score of 14 of 16. He was 3/3 for initial registration, 5/5 for orientation to time and place and 1/3 for immediate recall of 3 items after a brief time delay and distraction. Performance on the MMSE 2 standard version is within normal limits with a raw score of 28 of 30. He was 5/5 for serial 7's. The patient could copy a simple geometric design. The patient also was able to draw a clock and set the hands at a designated time. Brief verbal fluency assessment reveals category fluency at the first percentile and single word fluency of 34 percentile. Suggested as deficits in verbal fluency, which is consistent with his presentation of the left hemisphere infarction. 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 RECOMMENDATIONS: The patient will benefit from continued assistance in the use of compensatory strategies for decreased cognition. A medical alert that indicates difficulty in verbal fluency and cognitive processing will be helpful for him to utilize as needed. With decreased speed of processing it will be necessary to present information at a reduced rate. The use of relaxation techniques will assist in the management of anxiety. The patient may need increased social support upon discharge. He reports having a poor social support system at this time. Thank you very much for allowing me to provide the consultation on this patient. <ELECTRONICALLY SIGNED> By: Jun Palmer, PhD 11/30/192010 1655 2103 Jun Palmer, PhD /nt
--- NOTE | 2019-12-01 02:10 | NUR ---
ASSUMED CARE AROUND 1900, PT A&O X 4, NO ACUTE DISTRESS OVERNIGHT. VSS, O2 ON RA. TYLENOL GIVEN AT HS FOR R BKA PAIN, ADEQUATE RELIEF. MEDS GIVEN PER ORDERS, DRESSING TO R BKA IN PLACE C/D/I. PT CONTINENT OF B&B, USES URINAL. PT RESTING, CALL LIGHT WITHIN REACH, WILL CONTINUE TO MONITOR PER POC.
[2019-12-01 04:55] LABS: INR 1.2; PROTIME 12.2 Seconds (9.3-11.4)
[2019-12-01 09:25] VITALS: BP 109/77
--- NOTE | 2019-12-01 13:04 | NUR ---
PT ALERT AND ORIENTED TIMES FOUR. VSS. PT COMPLAINS OF RIGHT LEG PHANTOM PAIN CONTROLLED BY TYLENOL. DENIES SOA. DRESSING TO RIGHT BKA CHANGED. PT WORKED WELL WITH PT/OT THIS SHIFT. PT UP SITTING IN HIS WC FOR MOST OF THE SHIFT. PT TOLERATES MEDS AND MEALS. PT PROGRESSING TOWRADS POC GOALS.
--- NOTE | 2019-12-01 15:36 | NUR ---
cm checked with pt on kip for food stamps " yes it is filled out and ready to be sent in thank you"/dewayne. cm placed copy of kip on chart and have copy to send it to see if he will qualify for food stamp.
[2019-12-01 18:55] VITALS: BP 97/65
--- NOTE | 2019-12-02 00:58 | NUR ---
PT ALERT AND ORIENTED X 4. LEFT BKA DRESSING C/D/I. PT CALLED FOR HS MEDS APPROPRIATELY. PT DENIES PAIN OR DISCOMFORT. BED ALARM ON FOR SAFETY. PT APPEARS TO BE SLEEPING ON HOURLY ROUNDS.
[2019-12-02 06:45] LABS: ABSOLUTE NEUTROPHILS 2.1 thou/uL (1.4-8.2); BASOPHILS 1.2 % (0.0-2.0); EOSINOPHILS 4.6 % (0.0-3.0); HEMATOCRIT 29.6 % (42.0-52.0); HEMOGLOBIN 9.7 gm/dL (14.0-18.0); LYMPHOCYTES 32.2 % (24.0-44.0); MCH 26.9 pg (26.0-34.0); MCHC 32.8 g/dL (28.0-37.0); MONOCYTES 10.3 % (1.0-8.0); PLATELET COUNT 367 thou/uL (150-400); POLYS 51.7 % (36.0-66.0); RBC 3.61 mil/uL (4.50-6.00); RDW 16.4 % (10.5-14.5); WBC 4.1 thou/uL (4.0-11.0)
[2019-12-02 06:55] LABS: INR 1.2; PROTIME 12.7 Seconds (9.3-11.4)
[2019-12-02 06:56] LABS: CALCIUM 8.7 mg/dL (8.5-10.1); CREATININE 0.7 mg/dL (0.7-1.3); MAGNESIUM 1.4 mg/dL (1.8-2.4); POTASSIUM 4.2 mmol/L (3.5-5.1)
[2019-12-02 08:00] VITALS: BP 101/68
--- NOTE | 2019-12-02 14:01 | NUR ---
team meeting, recommendation: he will need walker, wheel chairs. he not going to be able to get out to run errands. food stamp kip to get sent in. has no support. get set up with [facility] [place] dc [facility]th, bedside nurse to assistance with teach on dressing changes to bka. will need to get vouch for 30 days of medication no refills and no narcs. check to see if can get aida nurse only hh.
[2019-12-02 19:19] VITALS: BP 100/64
--- NOTE | 2019-12-03 01:53 | NUR ---
CALLED FOR MEDS AT 2009 LAST EVENING, LATER CALLED FOR TO HELP GET TO TOILET FOR BM ATTEMPT. PIVOT TRANSFER TO AND FROM WITH STANDBY ASSIST AFTER PT LOCKED WHEELS. OTHERWISE USING URINAL. BLOOD SUGAR 119 AT . PLEASANT
[2019-12-03 05:50] VITALS: BP 100/59
[2019-12-03 07:45] LABS: INR 1.2; PROTIME 12.4 Seconds (9.3-11.4)
--- NOTE | 2019-12-03 08:29 | NUR ---
Nutrition: Following for oral intake/diet review as needed. Visited this AM. Spent an additional 20 mins in diet education guidance w/ pt. He asks many great questions and seems incredibly motivated to change his lifestyle/eating habits to improve diabetes control. Continues to be s/p R BKA. BGs much improved, ranging only 82-120 mg/dl yesterday. On metformin XR, linagliptin, and lantus. Pt eating 100% of every single meal and 100% of 2 daily Glucerna supplements which adds 440 kcals, 20 g protein. Recent BM 12/01. No new weight to review since 11/25, but BMI remains healthy at 20.5 kg/m2. Food stamp kip submitted 12/01 per CM notes. Encouraged pt to continue variety of food groups, emphasizing protein needs for ongoing healing. D/t low vitamin D levels, note cholecalciferol supplementation added on 11/27. Planned d/c 12/08. Remains low nutrition risk.
--- NOTE | 2019-12-03 10:02 | NUR ---
ASSUMED CARE AT 0700. PATIENT IS ALERT AND ORIENTED X4. PATIENT BASSETT, GOLD BURNISHER ARE EQUAL. LUNGS ARE CLEAR. ABD IS SOFT WITH BSX4. PATIENT IS UP IN W/C FOR MEALS. WOUND CARE TEAM HERE TO SEE STUMP. DRESSING CHANGED PER PROTOCOL. FALL AND SAFETY PROTOCOLS IN PLACE. DENIES PAIN AT THIS TIME. CONTINUES TO PROGRESS TOWARDS D/C GOALS. WILL CONTINUE TO MONITER.
[2019-12-03 19:22] VITALS: BP 104/72
--- NOTE | 2019-12-04 00:11 | NUR ---
PT ALERT AND ORIENTED X 4. VOIDING ADEQUATE AMTS CLEAR YELLOW URINE PER URINAL. RIGHT BKA DRESSING C/D/I. BP 104/72 AT HS. LISINOPRIL HELD. PT CALLED FOR HS MEDS APPROPRIATELY. PT DENIES PAIN OR DISCOMFORT. BED ALARM ON FOR SAFETY. PT APPEARS TO BE SLEEPING ON HOURLY ROUNDS.
[2019-12-04 08:00] VITALS: BP 101/71
--- NOTE | 2019-12-04 15:05 | NUR ---
ASSUMED CARE AROUND 0700, PT A&O X 4, NO ACUTE CHANGES NOTED. VSS, O2 ON RA. PT DENIED ANY PAIN OR DISCOMFORT, PT ASSISTED WITH DRESSING CHANGE TO RBKA. PT CALLED FOR MEDS APPROPRIATELY, BG ACHS. CONTINENT OF B&B, USES BR AND URINAL. PARTICIPATED IN WHIT THERAPIES. PT IN CHAIR, CALL LIGHT WITHIN REACH, WILL CONTINUE TO MONITOR PER POC.
[2019-12-04 19:53] VITALS: BP 92/58
--- NOTE | 2019-12-05 04:49 | NUR ---
ASKING FOR MEDS AT TIME SCHEDULED. URINAL AT BEDSIDE CLEAR YELLOW. NO C/O PAIN
[2019-12-05 07:38] VITALS: BP 102/66
[2019-12-05 09:00] VITALS: BP 102/66
--- NOTE | 2019-12-05 12:47 | NUR ---
PT ALERT AND ORIENTED TIMES FOUR. VSS, PT DENIES PAIN/SOA. PT TOLERATES MEDS AND MEALS. PT WORKED WELL WITH PT/OT TODAY. DRESSING TO LEFT BKA CHANGED, PATO INTACT. PT PROGRESSING TOWRADS POC GOALS.
--- NOTE | 2019-12-05 16:07 | NUR ---
[employer] free 30 day trial offer printed off [employer] site for pt at de on . cm working with physical therapy, acute going to be able to give him crutches at [facility]. pt will require wheel chair as well rt silvia and he has no funds to contribute. sent message to cm supervisor inspection room to see if can vouch for a used wheel chair from [facility] for around $100.
[2019-12-05 16:57] VITALS: BP 103/70
[2019-12-05 19:30] VITALS: BP 103/70
--- NOTE | 2019-12-06 02:19 | NUR ---
PATIENT ASKED FOR MEDS APPROPRIATELY AT 8 PM LAST NIGHT. PAIN AT RIGHT BKA SITE THIS MORNING, TYLENOL RE-ORDERED. PATIENT USING URINAL AT BEDSIDE. PLEASANT
[2019-12-06 08:00] VITALS: BP 99/71
[2019-12-06 09:54] VITALS: BP 99/71
--- NOTE | 2019-12-06 13:35 | NUR ---
ASSUMED CARES AT 0700. PT AWAKE, ALERT AND ORIENTED*4. C/O PHANTOM PAIN ON RLE. VITALS REMAIN STABLE. WOUNDCARE TO RIGHT BKA SITE COMPLETED, STAPLE REMAIN DRY AND INTACT. PT UP WITH SBA, GB AND WALKER AND TOLERATED WELL. Q1H VISUAL CHECKS. CALL LIGHT WITHIN REACH. FALL PRECAUTIONS IN PLACE
[2019-12-06 16:34] VITALS: BP 105/69
[2019-12-06 19:10] VITALS: BP 106/66
--- NOTE | 2019-12-07 01:28 | NUR ---
assumed care at approx 1900 evening 12/05. pt alert and oriented x4, appropriate and cooperative. pt denies complaints. pt called for hs meds and took with water tolerating well. right bka with bonilla wrap c/d/i. pt denies need for pain med. pt appears to be sleeping soundly with hourly rounding checks. bed alarm on and call light in reach. will continue to monitor.
[2019-12-07 08:00] VITALS: BP 101/68
--- NOTE | 2019-12-07 12:42 | NUR ---
ASSUMED CARES AT 0700. PT AWAKE, ALERT AND ORIENTED*4. DENIES PAIN. VITALS REMAIN STABLE. PT CALLING APPROPRIATELY AND ON TIME FOR HIS MEDICATIONS PER ST. PT CHANGED DRESSING ON RIGHT BKA WITH SUPERVISION, NEEDED A FEW CUES BUT COMPLETED THE DRESSING WITHOUT HANDS-ON ASSIST. ABRASIONS ON BILATERAL ELBOWS CLEANED AND NEOSPORIN CREAM APPLIED, HEALING WELL. UP WITH SBA, GB AND W/C AND TOLERATED WELL. Q1H VISUAL CHECKS. CALL LIGHT WITHIN REACH. FALL PRECAUTIONS IN PLACE
[2019-12-07 19:46] VITALS: BP 103/66
--- NOTE | 2019-12-08 00:09 | NUR ---
PT ALERT AND ORIENTED X 4. RIGHT BKA DRESSING C/D/I. BP 103/66 AT HS. LISINOPRIL HELD. PT DENIES PAIN OR DISCOMFORT. PT FORGOT TO CALL FOR MEDS AT HS. BED ALARM ON FOR SAFETY. PT APPEARS TO BE SLEEPING ON HOURLY ROUNDS.
[2019-12-08 07:15] VITALS: BP 107/73
[2019-12-08] MEDS ORDERED: LISINOPRIL2.5 MG PO (14:02)
[2019-12-08] MEDS ORDERED: TRIPLE ANTIBIOT14 GM TOP (14:02)
[2019-12-08] MEDS ORDERED: VITAMIN D325 MCG PO (14:02)
[2019-12-08] MEDS ORDERED: ATORVASTATIN CA10 MG PO (14:02)
[2019-12-08] MEDS ORDERED: MIRALAX17 GM PO (14:02)
[2019-12-08] MEDS ORDERED: CARVEDILOL3.125 MG PO (14:02)
[2019-12-08] MEDS ORDERED: TRADJENTA5 MG PO (14:02)
[2019-12-08] MEDS ORDERED: GLUCOPHAGE XR750 MG PO (14:02)
[2019-12-08] MEDS ORDERED: LANTUS SUBQ (14:02)
[2019-12-08] MEDS ORDERED: GLUCOMETER (14:04)
[2019-12-08] MEDS ORDERED: ELIQUIS5 MG PO (14:04)
--- NOTE | 2019-12-08 15:00 | NUR ---
cm called and left message with [employer] , to see if they can help him out with food and utilities. approved per cm clinical supervisor to vouch for wheel chair, transportation home, all medication 1 month no refills and get him a glucometer and supplies to check his bs for his dm. will cont following as needed for dc needs.
--- NOTE | 2019-12-08 16:33 | NUR ---
ASSUMED CARE OF PT AT 0700. PT IS A&OX4 AND VITAL SIGNS ARE STABLE. PT DENIES PAIN AND PARTICIPATED IN SCHEDULED THERAPIES. RIGHT BKA DRESSING CHANGED BY PATIENT WITH NURSING SUPERVISION, PATO IN PLACE, WELL APPROXIMATED. PER DR MONTERO'S OFFICE PT TO F/U WITH OFFICE ON SUNDAY FOLLOWING D/C TO HAVE PATO REMOVED. PT TO CALL AND ARRANGE APPOINTMENT. PLANS FOR D/C TOMORROW, SCRIPTS SENT TO OUTPATIENT PHARMACY. DIABETES EDUCATION COMPLETED WITH PT INCLUDING INSULIN INJECTION, BLOOD GLUCOSE MONITORING, DIABETIC EMERGENCIES, PT DEMONSTATED SKILLS AND PROVIDED TEACHBACK. CALLED WOUND CARE ABOUT STUMP PROTOZOOLOGIST USE, NO CALL BACK AT THIS TIME. HR REGULAR, LUNG SOUNDS CLEAR, AND BOWEL SOUNDS ACTIVE. FALL PRECAUTIONS IN PLACE AND NURSING WILL CONTINUE TO MONITOR.
[2019-12-08 19:10] VITALS: BP 119/68
--- NOTE | 2019-12-09 00:01 | NUR ---
PT ALERT AND ORIENTED X 4. RIGHT BKA DRESSING C/D/I. PT DENIES PAIN OR DISCOMFORT. PT CALLED FOR HS MEDS APPROPRIATELY. BED ALARM ON FOR SAFETY. PT APPEARS TO BE SLEEPING ON HOURLY ROUNDS.
[2019-12-09 08:10] VITALS: BP 101/72
--- NOTE | 2019-12-09 09:04 | NUR ---
[employer] delivered food for pt to take home today. spoke with outpt [facility] rx, total beltran with cm vouching from medication, and dm supplies will be $851.38, anyi caban as well. ok per cm supervisor welding equipment repairer to vouch [employer] transportation at cab rate on 12/11/[address] patino have to be there at 1230 for 1300 appointment to get teresa out of bka, carey office told bedside nurse that needs to bring ID and $45.00 for his visit since pt doesnt have any insurance, he is medicaid pending. cm called carey office, going to see if billing will wave the $45.00 if not going to have to have [employer] speak with dr patino. good with dr patino office to call rn cm back and going to speak with dr patino and should be able to way this $ 45.00 fee, good will call back after she speaks with dr patino.
[2019-12-09 10:08] VITALS: BP 10/72
--- NOTE | 2019-12-09 10:20 | H ---
[facility] [place] [address] HISTORY AND PHYSICAL Name: KALEB REDDY Room #: 501-A [facility] IN ..#: [id number] Admission: 11/25/19 Attend Phys: Thiago Snyder MD Discharge: Date of : 59 Report #: [id number] THIS REPORT FOR: cc: IRMA - Suzette family physician/PCP IRMA - No family physician/PCP Thiago Snyder MD ~ CC: Thiago SOLIS physician/PCP DATE OF SERVICE: 11/25/2019 HISTORY AND PHYSICAL/POST-ADMISSION PHYSICIAN EVALUATION: The patient has been readmitted back to the acute inpatient rehab [facility]. He was previously admitted post right below knee amputation and his course was complicated by the onset of significant aphasia. Neurology saw him and noted findings consistent with a left hemispheric cerebrovascular accident. Workup revealed a small right posterior frontal lobe acute subacute ischemic infarct. The patient was given TPA with improvement in his aphasia. He still notes some weakness of the left upper extremity. He also underwent cardiac catheterization showing evidence of ischemic cardiomyopathy with ejection fraction of 15% and significant coronary artery disease as documented. He has now been admitted for acute in-hospital inpatient rehabilitation and is being readmitted to the rehab [facility]. PAST MEDICAL HISTORY: Includes diabetes mellitus. ALLERGIES: No known drug allergies. MEDICATIONS: Please see the full medication listing. HABITS: No history of alcohol or tobacco abuse. SOCIAL HISTORY: Lives in a house with adaptive devices, 20 steps in. There are outside steps. Has an ascending handrail on the left. This is noted to be a rental home and he has a landlord. No family in the area. REVIEW OF SYSTEMS: No current complaints of chest pain, shortness of breath or abdominal discomfort. PHYSICAL EXAMINATION: GENERAL: A 64-year-old white male in no obvious distress. VITAL SIGNS: Last recorded temperature 97.9, pulse 80, respirations 17, blood pressure is 95/60. NEUROLOGIC: The patient is alert. He is pleasant. He is speaking much better. Appears conversant. Follows commands without difficulty. CHEST: Sounded clear to auscultation. CARDIOVASCULAR: Regular rate and rhythm. [facility] [address] [place] [address] HISTORY AND PHYSICAL Name: KALEB REDDY Room #: 501-A [facility] IN .R.#: [id number] Admission: 11/25/19 Attend Phys: Thiago Snyder MD Discharge: Date of : 59 Report #: [id number] ABDOMEN: Bowel sounds positive, nontender. GENITOURINARY AND RECTAL: Deferred. EXTREMITIES: Functional range of motion of both upper extremities. He might have slight decreased strength of that left upper extremity, a grade 4/5. He does quite well with [id number]. In his lower extremities, he has the right below-knee amputation. This is wrapped. He is able to move the proximal lower extremity. Left lower extremity, no focal calf swelling, functional range of motion strength appears to be a grade 4+/5. Functionally, he has been needing assistance with basic mobility skills. He has lately been standby assistance with basic transfers. We are trying to get him up short distances with a front-wheeled walker. ASSESSMENT: A 64-year-old white male with the following problem list: 1. Left parietal subacute infarct. 2. 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 3. Osteomyelitis, status post right below-knee amputation 11/14/2019. 4. Significant coronary artery disease with a decreased ejection fraction and ischemic cardiomyopathy. 5. Diabetes mellitus type 2. 6. Vitamin D deficiency. 7. Protein-calorie malnutrition. PLAN: The patient is admitted for acute in-hospital inpatient rehabilitation. From a postadmission physician evaluation perspective, there are no relevant changes since the preadmission screening. Please see the above review of prior and current medical and functional conditions and comorbidities. Please see the patient's previous and current functional status. As far as risk of complications, he has the multiple medical comorbidities as noted above. Initial plan of care involves the interdisciplinary acute inpatient rehabilitation program. Measurable functional goals would be for the patient to become modified independent with transfers, mobility, ADLs, so that he can hopefully return back to his prior living situation. Prognosis is reasonably good with estimated length of stay probably at least 10 days to 2 weeks, potentially longer as warranted. Potential barriers would include his multiple medical comorbidities and decreased functional status. The patient meets diagnostic criteria for an acute in-hospital inpatient rehabilitation stay. He meets the medical necessity criteria and we will have the business development consultant physicians continue to follow. He does have the tolerance for therapies and has appropriate discharge goals back to the home setting. <ELECTRONICALLY SIGNED> By: Thiago Snyder MD 12/09/19 1020 0830 [id number] Thiago Snyder MD /nt
--- NOTE | 2019-12-09 10:27 | NUR ---
ASSUMED CARE OF PT AT 0700. PT IS A&OX4 AND VITAL SIGNS ARE STABLE. DENIES PAIN. PLANS FOR DISCHARGE TODAY. DIABETES EDUCATION REINFORCED AND REVIEWED WITH PT. PT ADMINISTERED OWN INSULIN WITH NURSING SUPERVISION THIS AM. PT PROVIDED TEACHBACK OF DISCHARGE INSTRUCTIONS. WOUNDS CLEANED AND DRESSED PER ORDERS. STOOL SOFTNERS HELD FOR LOOSE STOOLS. F/U APPOINTMENT WITH DR SMITH OFFICE MADE FOR November AT 1300 AT OP OFFICE. TELE TECH NOTIFIED ABOUT APPOINTMENT AND STATES THAT SHE WILL MAKE ARRANGEMENTS FOR TRANSPORTATION. PT AWARE OF APPOINTMENT AND INFORMED THAT HE WILL NEED TO TAKE PHOTO ID AND ARRIVE AT 1230 FOR PAPERWORK. FALL PRECAUTIONS IN PLACE, NURSING WILL CONTINUE TO MONITOR.
--- NOTE | 2019-12-09 10:28 | PLAN ---
[facility] [place] [address] REHAB UNIT PLAN OF CARE Name: KALEB REDDY Room #: 501-A ADM IN M.R.#: [id number] Admission: 11/25/19 Attend Phys: Thiago Snyder MD Discharge: Date of : 59 Report #: [id number] THIS REPORT FOR: //name// CC: Thiago Snyder [facility] physician/PCP DATE OF SERVICE: 11/28/2019 PROGRESS NOTE/OVERALL PLAN OF CARE SUBJECTIVE: The patient is seen back today in followup. He is in no distress. Temperature 36.6, pulse 87, respirations 16, blood pressure 100/69. He is progressing in his therapies. Transfers are contact guard, gait 150 feet with a front-wheeled walker. Lower extremity dressing is supervision. We are working on trying to increase his overall independence. ASSESSMENT: 1. Left parietal subacute infarct. 2. 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 3. Status post right below-knee amputation on 11/14/2019. 4. Ischemic cardiomyopathy with ejection fraction of 15-20%. 5. Coronary artery disease with recommendations for optimization of medical therapy. 6. Left ventricular thrombus, on anticoagulation as per the medical team. He is on a Lovenox bridge. PLAN: The overall plan of care is based on the preadmission screen, post-admission physician evaluation and information garnered from therapy assessments. 1. Estimated length of stay probably at least 10 days to 2 weeks. 2. Medical prognosis is reasonably good. 3. Anticipated interventions includes the interdisciplinary acute inpatient rehabilitation program. 4. Anticipated functional outcomes would be for the patient to improve as far as mobility and ADLs with the walker to try to return back to the home setting. 5. Discharge destination would be to try to return back to his apartment. He does have a number of steps. 6. Expected therapy by discipline includes PT and OT and speech 1 hour per day each five days a week throughout the duration of the acute inpatient rehabilitation stay. Speech is seeing him with a recent CVA. He does have [id number] cognitive deficits that are noted. <ELECTRONICALLY SIGNED> By: Thiago Snyder MD 12/09/19 1028 [id number] Thiago Snyder MD /[facility]
[2019-12-09 11:51] VITALS: BP 10/72
[2019-12-09 13:56] VITALS: BP 10/72
--- NOTE | 2019-12-09 15:42 | NUR ---
PT DISCHARGING TODAY TO HOME FAXED REFERRAL TO [facility] FOR [facility] VISITS PT IS MEDICAID PENDING DR NAVARRETE TO FOLLOW FOR HH. SPOKE VILLA HAYWARD IN INTAKE AT [facility] AND THEY WILL ACCEPT. FAXED DC ORDERS/SUMMARY THEY WILL NOTIFY PT TIME OF VISITS.
[2019-12-09 15:46] VITALS: BP 10/72
--- NOTE | 2019-12-10 10:00 | NUR ---
[facility] and [facility] both advised that the pt does not have a working phone number at this time. Followup appt with Ortho tomorrow confirmed with both as well.
--- NOTE | 2019-12-11 09:00 | NUR ---
[facility] called stated a nurse went to address located on face sheet and i will locked gait say no trespassing. cm called [facility] transportation who took pt home to [address] [place] [address]. cm tried calling pt number listed which say, not taking calls at this time. sung left message with dr patino office to see they can verify his home address?
== END 2019-12-09 14:45 | disposition home or self-care (01) | DRG 65 ==
PROVIDERS: Nurse Practitioner; ADMIT Physical Medicine & Rehabilitation; ATTEND Physical Medicine & Rehabilitation
DX: I63.9 Cerebral infarction, unspecified (principal); E46 Unspecified protein-calorie malnutrition; D61.9 Aplastic anemia, unspecified; I25.5 Ischemic cardiomyopathy; I25.10 Atherosclerotic heart disease of native coronary artery without angina pectoris; F43.22 Adjustment disorder with anxiety; G31.84 Mild cognitive impairment of uncertain or unknown etiology; E11.9 Type 2 diabetes mellitus without complications; E55.9 Vitamin D deficiency, unspecified; Z68.20 Body mass index [BMI] 20.0-20.9, adult; Z89.511 Acquired absence of right leg below knee; Z60.2 Problems related to living alone; E05.90 Thyrotoxicosis, unspecified without thyrotoxic crisis or storm
CPT/HCPCS: 10112